=== PATIENT | female | born 1975 | race Caucasian/White ===

== ENCOUNTER 2025-07-21 11:34 | Inpatient (IN) | payer MEDICAID, OTHER ==
[~2025-07-21] VITALS: Ht 152.4 cm; Wt 41.6 kg
[2025-07-21 11:55] VITALS: PULSE 65; RESP 12; O2SAT 100
--- NOTE | 2025-07-21 11:55 | ECG ---
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
--- NOTE | 2025-07-21 12:02 | ED.PDOC ---
HPI Comments 50 year old female with PMHx bed bound and nonverbal secondary to cerebral palsy, intellectual disability, epilepsy presents to the ED via EMS with a chief complaint of hypotension onset today. Per EMS, patient is from [facility], 911 was called due to patient being hypotensive. Upon EMS arrival, BP was 70s systolic, was given about 150 mL IVF in route to ED. Upon ED arrival, BP was 79/46. No other symptoms or modifying factors present at this time. 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 Was a procedure done?: No X-Ray, Labs, Meds, VS Vital Signs Date Time Temp Pulse Resp B/P (MAP) Pulse Ox O2 Delivery O2 Flow Rate FiO2 07/21/25 12:39 66 07/21/25 11:55 98.8 65 12 79/46 (57) 98 98.8 07/21/25 11:55 65 12 100 Room Air* 0 21 07/21/25 11:49 65 07/21/25 11:34 97.8 79 14 79/46 99 97.8 Lab Test 07/21/25 12:03 Range/Units White Blood Count 8.0 4.4-10.8 10^3/uL Red Blood Count 3.14 L 4.0-5.20 10^6/uL Hemoglobin 9.5 L 12.2-16.2 g/dL Hematocrit 29.2 L 36.0-46.0 % Mean Corpuscular Volume 93.0 80.0-100.0 fL Mean Corpuscular Hemoglobin 30.3 28.0-32.0 pg Mean Corpuscular Hemoglobin Concent 32.6 32.0-36.0 g/dL Red Cell Distribution Width 15.3 H 11.8-14.3 % Platelet Count 246 140-450 10^3/uL Mean Platelet Volume 8.7 6.9-10.8 fL Neutrophils (%) (Auto) 61.9 37.0-80.0 % Lymphocytes (%) (Auto) 25.8 10.0-50.0 % Monocytes (%) (Auto) 11.1 0.0-12.0 % Eosinophils (%) (Auto) 1.0 0.0-7.0 % Basophils (%) (Auto) 0.2 0.0-2.0 % Neutrophils # (Auto) 4.9 1.6-8.6 10 ^3/uL Lymphocytes # (Auto) 2.1 0.4-5.4 10 ^3/uL Monocytes # (Auto) 0.9 0-1.3 10 ^3/uL Eosinophils # (Auto) 0.1 0-0.8 10 ^3/uL Basophils # (Auto) 0 0-0.2 10 ^3/uL Nucleated Red Blood Cells 0.1 % Prothrombin Time Pending Prothrombin Time INR Pending Activated Partial Thromboplast Time Pending Sodium Level Pending Potassium Level Pending Chloride Level Pending Carbon Dioxide Level Pending Anion Gap Pending Blood Urea Nitrogen Pending Creatinine Pending Glomerular Filtration Rate Calc Pending BUN/Creatinine Ratio Pending Serum Glucose Pending Lactic Acid Level Pending Calcium Level Pending Total Bilirubin Pending Aspartate Amino Transferase (AST) Pending Alanine Aminotransferase (ALT) Pending Alkaline Phosphatase Pending Total Protein Pending Albumin Pending Current Medications Medications (Trade) Dose Ordered Sig/Gretchen Route Start Time Stop Time Status Last Admin Lactated Ringer's 1,700 ml @ 1,700 mls/hr ONCE ONCE IV 07/21/25 12:00 07/21/25 12:59 07/21/25 12:[address] [address] Ph: [phone] DIAGNOSTIC IMAGING Diagnostic Imaging Report : [id number] Signed PATIENT: KAYLEE PETE ACCT: [id number] UNIT: [id number] : 1975 LOC: ER ROOM / BED: / AGE / SEX: 50 / F ADM STATUS: REG ER SERVICE 1148 ORDERING PHYSICIAN: WOO REYNAGA MD PROCEDURE(s): CXRP - CHEST PORTABLE REASON: hypotension ORDER NUMBER(s): [id number], ACCESSION NUMBER(s): [id number] INDICATION: hypotension TECHNIQUE: Frontal view of the chest. COMPARISON: XR CHEST 1 VIEW on DOS: 07/10/25, XR CHEST 1 VIEW on DOS: 04/04/25, XR CHEST 1 VIEW on DOS: 04/03/25, XR CHEST 1 VIEW on DOS: 03/15/25, XR CHEST 1 VIEW on DOS: 03/07/25 FINDINGS: Mild increased interstitial markings are seen involving the right lung. In there is no definite evidence of an infiltrate. Heart size normal. No effusions present. IMPRESSION: 1. Mild increased interstitial markings involving the right lung. ATED BY: LOUISE MUNIZ MD DICTATED DATE/TIME: 07/21/25 1231 SIGNED BY: LOUISE MUNIZ MD SIGNED DATE/TIME: 07/21/25 1231 CC: Time of 1ST Reevaluation: 12:20 Reevaluation 1ST: Unchanged Patient Education/Counseling: Other Family Education/Counseling: No Family Present SEPSIS Sepsis Screen Date sepsis recognized/suspect: Jul 21, 2025 Time Sepsis recognized/suspect: 1134 Recent Procedure: No On Antibiotic Therapy: No Respiratory Rate >20: No Heart Rate >90: No Temp<36 C (96.8 F) or >38.3 C: No SBP <90 or MAP <65 mmHG: Yes New Acute Mental Status Change: No Is the patient on CPAP, BIPAP,: No Physician Orders Comprehensive Metabolic Panel (07/21/25 11:48) PTPTT (07/21/25 11:48) Urinalysis (07/21/25 11:48) Chest Portable (07/21/25 11:48) Accucheck (07/21/25 11:48) Lactated Ringer's (07/21/25 12:00) Blood Culture (07/21/25 11:48) Vancomycin 1gm/250ml Kit (07/21/25 12:00) Lactic Acid W/ Reflex Order (07/21/25 12:00) Cefepime 1gm/50ml (Maxipime 1gm/50ml) (07/21/25 12:00) Notify Md If Map <65 Or Bp<90 (07/21/25 11:48) If Map<65 Start Vasopressor (07/21/25 11:48) Sepsis Reassesment After Fluid (07/21/25 12:48) Pelvis Ap (07/21/25 11:48) Paint Roller Assembler (07/21/25 ) * Picc Line Consult (07/21/25 12:40) Vital Signs Date Time Temp Pulse Resp B/P (MAP) Pulse Ox O2 Delivery O2 Flow Rate FiO2 07/21/25 12:39 66 07/21/25 11:55 98.8 65 12 79/46 (57) 98 98.8 07/21/25 11:55 65 12 100 Room Air* 0 21 07/21/25 11:49 65 07/21/25 11:34 97.8 79 14 79/46 99 97.8 Laboratory Tests Test 07/21/25 12:03 Lactic Acid Level Pending White Blood Count 8.0 10^3/uL (4.4-10.8) Medications Medications Dose Ordered Sig/Gretchen Route Start Time Stop Time Status Last Admin Dose Admin Lactated Ringer's 1,700 ml @ 1,700 mls/hr ONCE ONCE IV 07/21/25 12:00 07/21/25 12:59 07/21/25 12:06 Critical Care Note Critical Care Time?: No Stability Stability form required: No Heart Score Heart Score: Heart Score Response (Comments) Value History N/A 0 EKG N/A 0 Age N/A 0 Risk Factors N/A 0 Troponin N/A 0 Total 0 I personally scribed for WOO REYNAGA MD ([email or web address]) on 07/21/25 at 12:02. Electronically submitted by Madiha Block ([email or web address]). I personally scribed for WOO REYNAGA MD ([email or web address]) on 07/21/25 at 12:46. Electronically submitted by Madiha Block ([email or web address]). WOO REYNAGA MD Jul 21, 2025 12:02
[2025-07-21] MEDS: LACTATED RINGER'S 1,700 ML IV ONE (12:06)
--- NOTE | 2025-07-21 12:33 | DVH ---
INDICATION: hypotension TECHNIQUE: Frontal view of the chest. COMPARISON: XR CHEST 1 VIEW on DOS: 07/10/25, XR CHEST 1 VIEW on DOS: 04/04/25, XR CHEST 1 VIEW on DOS: 04/03/25, XR CHEST 1 VIEW on DOS: 03/15/25, XR CHEST 1 VIEW on DOS: 03/07/25 FINDINGS: Mild increased interstitial markings are seen involving the right lung. In there is no definite evidence of an infiltrate. Heart size normal. No effusions present. IMPRESSION: 1. Mild increased interstitial markings involving the right lung.
--- NOTE | 2025-07-21 12:34 | DVH ---
EXAM: XY PELVIS AP CLINICAL INDICATION: pain TECHNIQUE: XY PELVIS AP COMPARISON: None FINDINGS/IMPRESSION: There is no evidence of acute fracture or dislocation. The visualized joint space is well maintained. The alignment is anatomical. There is no radiopaque foreign body.
[2025-07-21 12:37] LABS: Hematocrit 29.2 % (36.0-46.0); Hemoglobin 9.5 g/dL (12.2-16.2); Mean Corpuscular Hemoglobin 30.3 pg (28.0-32.0); Mean Corpuscular Volume 93.0 fL (80.0-100.0); Nucleated Red Blood Cells % 0.1 %
[2025-07-21] MEDS: CEFEPIME 1GM/50ML 50 ML IV ONE (12:50)
[2025-07-21 12:53] LABS: INR 1.09 (0.9-1.15); Partial Thromboplastin Time 33.5 SEC (24.5-34.5); Prothrombin Time 11.5 sec (9.3-11.8)
[2025-07-21 12:57] LABS: Alanine Aminotransferase 14 U/L (7-40); Anion Gap 8 (5-15); BUN/Creatinine Ratio 26.1 (10.0-20.0); Carbon Dioxide 25 mmol/L (20-31); Potassium 4.1 mmol/L (3.5-5.1); Sodium 142 mmol/L (136-145)
[2025-07-21 13:13] LABS: Albumin 2.6 g/dL (3.2-4.8); Alkaline Phosphatase 128 U/L (46-116); Bilirubin, Total 0.2 mg/dL (0.2-1.0); Blood Urea Nitrogen 6 mg/dL (9-23); Calcium 8.2 mg/dL (8.7-10.4); Chloride 109 mmol/L (98-107); Glucose 148 mg/dL (74-106); Total Protein 4.7 g/dL (5.7-8.2)
[2025-07-21] MEDS: VANCOMYCIN 1GM/250ML KIT 250 ML IV ONE (13:32)
[2025-07-21] MEDS: SODIUM CHLORIDE 0.9% 1,000 ML IV ONE (14:20)
[2025-07-21] MEDS ORDERED: NITROGLYCERIN 0.4 MG SL TAB SL PRN (16:15)
[2025-07-21] MEDS ORDERED: ONDANSETRON HCL 4 MG/2 ML VIAL IV PRN (16:15)
--- NOTE | 2025-07-21 16:23 | DVHHP2 ---
History of Present Illness Reason for Visit: Hypotension History of Present Illness Krystina Mcguire is a 50-year-old female with past medical history of bed bound and nonverbal secondary to cerebral palsy, intellectual disability, and epilepsy who was brought to the hospital by EMS for hypotension. Per EMS, patient is from [facility]. They called EMS due to patient being hypotensive. Upon EMS arrival, BP was 70s systolic, was given about 150 mL IVF in route to ED. Upon ED arrival, BP was 79/46. No other symptoms or modifying factors present at this time. TUBE DRAW HELPER: Other (Cerebral palsy, seizure, intellectual disabiltiy, non-verbal, bed bound, contracted) Past Surgical History: Other (Peg tube) Smoke: No ALCOHOL: none Drugs: None Lives: [facility] Domestic Violence: Neg Review of Systems Review of Systems Unable to obtain ENT: No: Ear pain, Ear discharge, Nose pain, Nose discharge, Nose congestion, Mouth pain, Mouth swelling, Throat pain, Throat swelling, Other Allergies: Coded Allergies: NO KNOWN ALLERGIES (Unverified , 07/21/25) Exam Vital Signs Vital Signs Date Time Temp Pulse Resp B/P (MAP) Pulse Ox O2 Delivery O2 Flow Rate FiO2 07/21/25 16:00 65 07/21/25 15:00 98.6 10 85/56 (66) 92 98.6 07/21/25 11:55 Room Air* 0 21 HEENT: Atraumatic, PERRLA, Other (Mucous membr dry) Respiratory: Clear to auscultation, Normal air movement Cardiovascular: Regular rate, Normal S1, Normal S2, Other (Hypotensive) Abdominal: Normal bowel sounds, Soft, Other (Peg tube) Extremities: Other (contracted, possible humerus fracture) Skin: No rashes, No breakdown, No significant lesion Neuro: Other (Cerebral palsy, seizure, intellectual disabiltiy, non-verbal, bed bound, contracted) Psych/Mental Status: Other Labs/Xrays Labs Test 07/21/25 12:03 Range/Units White Blood Count 8.0 4.4-10.8 10^3/uL Red Blood Count 3.14 L 4.0-5.20 10^6/uL Hemoglobin 9.5 L 12.2-16.2 g/dL Hematocrit 29.2 L 36.0-46.0 % Mean Corpuscular Volume 93.0 80.0-100.0 fL Mean Corpuscular Hemoglobin 30.3 28.0-32.0 pg Mean Corpuscular Hemoglobin Concent 32.6 32.0-36.0 g/dL Red Cell Distribution Width 15.3 H 11.8-14.3 % Platelet Count 246 140-450 10^3/uL Mean Platelet Volume 8.7 6.9-10.8 fL Neutrophils (%) (Auto) 61.9 37.0-80.0 % Lymphocytes (%) (Auto) 25.8 10.0-50.0 % Monocytes (%) (Auto) 11.1 0.0-12.0 % Eosinophils (%) (Auto) 1.0 0.0-7.0 % Basophils (%) (Auto) 0.2 0.0-2.0 % Neutrophils # (Auto) 4.9 1.6-8.6 10 ^3/uL Lymphocytes # (Auto) 2.1 0.4-5.4 10 ^3/uL Monocytes # (Auto) 0.9 0-1.3 10 ^3/uL Eosinophils # (Auto) 0.1 0-0.8 10 ^3/uL Basophils # (Auto) 0 0-0.2 10 ^3/uL Nucleated Red Blood Cells 0.1 % Prothrombin Time 11.5 9.3-11.8 sec Prothrombin Time INR 1.09 0.9-1.15 Activated Partial Thromboplast Time 33.5 24.5-34.5 SEC Sodium Level 142 136-145 mmol/L Potassium Level 4.1 3.5-5.1 mmol/L Chloride Level 109 H 98-107 mmol/L Carbon Dioxide Level 25 20-31 mmol/L Anion Gap 8 5-15 Blood Urea Nitrogen 6 L 9-23 mg/dL Creatinine 0.23 L 0.550-1.02 mg/dL Glomerular Filtration Rate Calc 138 >90 mL/min BUN/Creatinine Ratio 26.1 H 10.0-20.0 Serum Glucose 148 H 74-106 mg/dL Lactic Acid Level 1.7 0.4-2.0 mmol/L Calcium Level 8.2 L 8.7-10.4 mg/dL Total Bilirubin 0.2 0.2-1.0 mg/dL Aspartate Amino Transferase (AST) 16 13-40 U/L Alanine Aminotransferase (ALT) 14 7-40 U/L Alkaline Phosphatase 128 H 46-116 U/L Total Protein 4.7 L 5.7-8.2 g/dL Albumin 2.6 L 3.2-4.8 g/dL TECHNIQUE: Frontal view of the chest. FINDINGS: Mild increased interstitial markings are seen involving the right lung. In there is no definite evidence of an infiltrate. Heart size normal. No effusions present. IMPRESSION: 1. Mild increased interstitial markings involving the right lung. EXAM: XY PELVIS AP FINDINGS/IMPRESSION: There is no evidence of acute fracture or dislocation. The visualized joint space is well maintained. The alignment is anatomical. There is no radiopaque foreign body. SEPSIS Sepsis Screen Date sepsis recognized/suspect: Jul 21, 2025 Time Sepsis recognized/suspect: 115 Recent Procedure: No On Antibiotic Therapy: No Respiratory Rate >20: No Heart Rate >90: No Temp<36 C (96.8 F) or >38.3 C: No SBP <90 or MAP <65 mmHG: Yes New Acute Mental Status Change: No Is the patient on CPAP, BIPAP,: No Physician Orders Urinalysis (07/21/25 11:48) Chest Portable (07/21/25 11:48) Accucheck (07/21/25 11:48) Blood Culture (07/21/25 11:48) Notify Md If Map <65 Or Bp<90 (07/21/25 11:48) If Map<65 Start Vasopressor (07/21/25 11:48) Sepsis Reassesment After Fluid (07/21/25 12:48) Pelvis Ap (07/21/25 11:48) Core Finisher (07/21/25 ) Admit (07/21/25 16:07) Code Status (07/21/25 16:07) 0.9% Ns 1000 Ml (07/21/25 16:15) Hydrocodone-Acet 5/325mg Tab ([place] 5/32 (07/21/25 16:15) Ondansetron Hcl (Zofran) (07/21/25 16:15) Complete Blood Count (07/22/25 04:00) Comprehensive Metabolic Panel (07/22/25 04:00) Npo (Nothing By Mouth) Diet (07/21/25 Dinner) Condition: Serious (07/21/25 16:07) Acetaminophen Tablet (Tylenol Tablet) (07/21/25 16:15) Nitroglycerin Sublingual (Ntrostat Subli (07/21/25 16:15) Morphine Sulfate Injection (07/21/25 16:15) Stat Ekg For Chest Pain (07/21/25 16:07) Notify Of Changes From Base (07/21/25 16:07) Gravel Wheeler For 24 Hours (07/21/25 16:07) Emergency Dysrhythmia Protocol (07/21/25 16:07) Rhythm Strips Once Every Shift (07/21/25 16:07) Oxygen By Nasal Cannula (07/21/25 16:07) Docusate Sodium Liquid (Colace Liquid) (07/21/25 16:15) Vital Signs Date Time Temp Pulse Resp B/P (MAP) Pulse Ox O2 Delivery O2 Flow Rate FiO2 07/21/25 16:00 65 07/21/25 15:00 98.6 59 10 85/56 (66) 92 98.6 07/21/25 14:00 83 10 90/56 (67) 97 07/21/25 13:55 65 10 90/56 (67) 95 07/21/25 12:39 66 07/21/25 11:55 98.8 65 12 79/46 (57) 98 98.8 07/21/25 11:55 65 12 100 Room Air* 0 21 07/21/25 11:49 65 07/21/25 11:34 97.8 79 14 79/46 99 97.8 Laboratory Tests Test 07/21/25 12:03 Lactic Acid Level 1.7 mmol/L (0.4-2.0) White Blood Count 8.0 10^3/uL (4.4-10.8) Medications Medications Dose Ordered Sig/Gretchen Route Start Time Stop Time Status Last Admin Dose Admin Cefepime HCl 50 ml @ 12.5 mls/hr ONCE ONCE IV 07/21/25 12:00 07/21/25 15:59 DC 07/21/25 12:50 12.5 MLS/HR Lactated Ringer's 1,700 ml @ 1,700 mls/hr ONCE ONCE IV 07/21/25 12:00 07/21/25 12:59 DC 07/21/25 12:06 1,700 MLS/HR Sodium Chloride 1,000 ml @ 1,000 mls/hr Q1H ONCE IV 07/21/25 14:15 07/21/25 15:14 DC 07/21/25 14:20 1,000 MLS/HR Vancomycin HCl 250 ml @ 250 mls/hr ONCE ONCE IV 07/21/25 12:00 07/21/25 12:59 DC 07/21/25 13:32 250 MLS/HR Assessment/Plan Assessment/Plan Assessment: Hypotension, Possible sepsis, Possible UTI, Seizures, Plan: Admit to [facility], IV hydration, IV antibiotics, Straight cath for UA, Wound care consult, Seizure precautions, Home medications reconciled, Plan discussed with: Patient My Orders Orders - AZUL HDZ Procedure Category Date Status Time Admit ADMIT 07/21/25 Transmitted 16:07 Code Status CODE 07/21/25 Transmitted 16:07 0.9% Ns 1000 Ml PHA 07/21/25 Transmitted 16:15 Hydrocodone-Acet PHA 07/21/25 Transmitted 5/325mg Tab ([place] 16:15 Ondansetron Hcl [facility] 07/21/25 Transmitted (Zofran) 16:15 Complete Blood Count LAB 07/22/25 Verified 04:00 Comprehensive LAB 07/22/25 Verified Metabolic Panel 04:00 Npo (Nothing By DIET 07/21/25 Transmitted Mouth) Diet Dinner Condition: Serious [facility] 07/21/25 Transmitted 16:07 Acetaminophen Tablet [facility] 07/21/25 Transmitted (Tylenol Tablet) 16:15 Nitroglycerin [facility] 07/21/25 Transmitted Sublingual (Ntrostat 16:15 Morphine Sulfate PHA 07/21/25 Transmitted Injection 16:15 Stat Ekg For Chest [facility] 07/21/25 Transmitted Pain 16:07 Notify Md Of Changes [facility] 07/21/25 Transmitted From Base 16:07 Gravel Wheeler For [facility] 07/21/25 Transmitted 24 Hours 16:07 Emergency Dysrhythmia [facility] 07/21/25 Transmitted Protocol 16:07 Rhythm Strips Once [facility] 07/21/25 Transmitted Every Shift 16:07 Oxygen By Nasal RT 07/21/25 Transmitted Cannula 16:07 Docusate Sodium PHA 07/21/25 Transmitted Liquid (Colace Liquid) 16:15 Date of Service: Jul 21, 2025 Billing Provider: AZUL HDZ Common Visit Codes: [id number] INP/OBS CARE (MOD) AZUL HDZ Jul 21, 2025 16:23
[2025-07-21] MEDS: SODIUM CHLORIDE 0.9% 1,000 ML IV SCH (16:28)
[2025-07-21] MEDS ORDERED: MORPHINE SULFATE 4 MG/ML SYR/VIAL IV PRN (16:30)
[2025-07-21 16:46] LABS: Urine Protein, UAD TRACE (Negative); Urine WBC Clumps PRESENT /hpf (None Seen)
[2025-07-21 17:40] VITALS: BP 97/67; PULSE 77; RESP 16; TEMP 97.4; O2SAT 94
[2025-07-21 19:18] VITALS: PULSE 77; RESP 16; O2SAT 94
[2025-07-21] MEDS ORDERED: HYDR-4798 PO (19:56)
[2025-07-21] MEDS ORDERED: [UNRECOGNIZED DRUG - CODE] IV (19:56)
[2025-07-21] MEDS ORDERED: [UNRECOGNIZED DRUG - CODE] IM (19:56)
[2025-07-21] MEDS ORDERED: PHEN50CH OR (19:56)
[2025-07-21] MEDS ORDERED: LACO10SO3 PO (19:56)
[2025-07-21] MEDS ORDERED: VALP250S19 PO (19:56)
[2025-07-21] MEDS ORDERED: LEVE5SOL GT (19:56)
[2025-07-21] MEDS ORDERED: FAMO-161 PO (19:56)
[2025-07-21 20:00] VITALS: PULSE 50; PULSE 77
[2025-07-21 21:00] VITALS: BP 99/70; PULSE 73; RESP 18; TEMP 96.5; O2SAT 96
[2025-07-22] VITALS (8 sets, daily range): BP systolic 97–117; BP diastolic 59–77; PULSE 54–80; RESP 16–19; TEMP 96.6–98; O2SAT 94–99
[2025-07-22 06:48] LABS: Hematocrit 34.6 % (36.0-46.0); Hemoglobin 11.4 g/dL (12.2-16.2); Mean Corpuscular Hemoglobin 30.6 pg (28.0-32.0); Mean Corpuscular Volume 93.3 fL (80.0-100.0); Nucleated Red Blood Cells % 0.1 %
[2025-07-22 07:19] LABS: Alanine Aminotransferase 15 U/L (7-40); Anion Gap 9 (5-15); Calcium 8.8 mg/dL (8.7-10.4); Carbon Dioxide 26 mmol/L (20-31); Potassium 4.4 mmol/L (3.5-5.1); Sodium 142 mmol/L (136-145)
[2025-07-22 07:20] LABS: Bilirubin, Total 0.4 mg/dL (0.2-1.0)
[2025-07-22 07:30] LABS: Albumin 2.8 g/dL (3.2-4.8); Alkaline Phosphatase 145 U/L (46-116); BUN/Creatinine Ratio 23.8 (10.0-20.0); Blood Urea Nitrogen < 5 mg/dL (9-23); Chloride 107 mmol/L (98-107); Glucose 72 mg/dL (74-106); Total Protein 4.9 g/dL (5.7-8.2)
[2025-07-22] MEDS: VALPROIC ACID 250 MG/5 ML ORAL SOLN PEG SCH (09:36)
[2025-07-22 14:03] LABS: Barbiturate Scree,Urine Neg (NEGATIVE); Opiate Scree,Urine Neg (NEGATIVE)
[2025-07-22 14:06] LABS: Amphetamine Screen, Urine Neg (NEGATIVE); Benzodiazephine Screen, Urine Neg (NEGATIVE); Cannabinoid Screen, Urine Neg (NEGATIVE); Cocaine Screen, Urine Neg (NEGATIVE); Phencyclidine Screen, Urine Neg (NEGATIVE)
--- NOTE | 2025-07-22 19:00 | DVHPNRES ---
Progress Note Date Seen: Jul 22, 2025 Resident Creating Document: REYMUNOD HOPKINS RESIDENT Medical Necessity Reason Pt with a Central, PICC or Fol: No Subjective Review of Systems 50-year-old female with a past medical history of cerebral palsy, right shoulder dislocation, epilepsy, G-tube, nonverbal, nonambulatory,with ntellectual disability was brought to the hospital by EMS for hypotension. [facility] As well as ER notes. EMS informed that the patient was brought to the ER as the nursing facility noted that the patient's blood pressure was low. On arrival blood pressure was 79/46 mmHg. No other symptoms or modifying factors present at this time. Past Surgical History: Other (Peg tube) Smoke: No ALCOHOL: none Drugs: None Lives: Longterm Domestic Violence: Neg ROS 07/22/2025: Patient was seen and examined by me at the bedside today. Labs and charts reviewed. Patient is nonverbal and nonambulatory. Peg tube is in place. We are giving the patient ceftriaxone for her UTI. For hypotension fluids are ongoing. Objective vital signs Vital Sign Date Time Temp Pulse Resp B/P (MAP) Pulse Ox O2 Delivery O2 Flow Rate FiO2 07/22/25 16:42 97.0 58 17 106/72 (83) 99 97.0 07/22/25 08:00 Room Air* 0 21 Total Intake and Output 07/21/25 07/21/25 07/22/25 15:00 23:00 07:00 Intake Total 1750 ml 1060 ml 0 ml Balance 1750 ml 1060 ml 0 ml medications Current Medications Medications Dose Ordered Sig/Gretchen Route Start Time Stop Time Status Last Admin Dose Admin Sodium Chloride 1,000 ml @ 60 mls/hr [id number] IV 07/21/25 16:15 07/22/25 08:55 60 MLS/HR Acetaminophen/ Hydrocodone Bitart 1 tab Q4HP PRN PO 07/21/25 16:15 Ondansetron HCl 4 mg Q4HP PRN IV 07/21/25 16:15 Acetaminophen 650 mg Q6HP PRN PO 07/21/25 16:15 Nitroglycerin 0.4 mg Q5MINP PRN SL 07/21/25 16:15 Morphine Sulfate 2 mg Q30M PRN IV 07/21/25 16:30 Docusate Sodium 100 mg BIDP PRN GT 07/21/25 16:15 Ceftriaxone Sodium 50 ml @ 100 mls/hr DAILY@09 IV 07/22/25 09:00 07/22/25 09:35 100 MLS/HR Levetiracetam 100 mg BID GT 07/22/25 10:00 07/22/25 09:36 100 MG Valproate Sodium 500 mg DAILY PEG 07/22/25 10:00 07/22/25 09:36 500 MG Examination Pt is lying on bed General Appearance: Patient does not appear in acute distress HEENT: Atraumatic, Mucous membranes moist/pink Respiratory: Clear to auscultation, Normal air movement, No added sounds Cardiovascular: Regular rate, Normal S1, Normal S2, No murmurs Abdominal: Active bowel sounds, Soft, no distention, presence of PEG tube in the epigastric region Extremities: No edema, Normal pulses, No tenderness/swelling Skin: No Significant rash, except past surgical scars Neuro: Patient unable to move as she has cerebral palsy laboratory and microbiology Laboratory Tests 07/22/25 06:03 Test 07/22/25 06:03 Range/Units Serum Glucose 72 L 74-106 mg/dL Microbiology Date/Time Source Procedure Growth Status 07/21/25 12:05 Blood Blood Culture - Preliminary Resulted Labs and/or images reviewed: Labs reviewed by me, Image(s) reviewed by me Problem List/Assessment/Plan Problem List/Assessment/Plan # Acute complicated UTI - ceftriaxone 1 g IV daily - Zofran 4 mg q.4 PRN IV for nausea and vomiting - urine culture, pending - 1.7 # hypotension - 1 L during a lactate and 2 L NS given - if MAP is less than 65, pressors indicated # History of epilepsy # History of cerebral palsy - continue valproate sodium 500 mg daily through PEG tube - continue Keppra 100 mg b.i.d. through PEG tube - [place] 5/325 mg p.o. q.4 PRN - acetaminophen 650 mg q.6 PRN p.o. - morphine 2 mg Q 30 minute PRN IV - Colace liquid 100 mg b.i.d. for constipation PRN # Severe protein calorie malnutrition -Jevity 1.230 mL/hour through PEG tube as suggested by electrical systems drafter DVT prophylaxis: Lovenox 30 mg subcutaneously daily Goals of care discussed with the patient for more than 27 minutes: Full code status Case discussed with , patient and nurse. Plan discussed with: Patient, Other (rn) My Orders My Orders Orders - REYMUNDO HOPKINS RESIDENT Procedure Category Date Status Time Covid19 Antigen Francy LAB 07/22/25 Logged Rapid Influenza A&B LAB 07/22/25 Logged 07:12 Urine Bacterial MENDEZ 07/22/25 Uncollected Culture 10:20 Communication Order ORDERS 07/22/25 Transmitted 18:46 Enoxaparin Sodium PHA 07/23/25 Logged (Lovenox) 10:00 Dietary Evaluation Review Comments: Tube Feeding: Jevity 1.2 @30ml/hr To avoid refeeding syndrome, Initiate infusion @10ml/hr, increase [id number] unitl meeting the goalt rate of 30ml/hr Provide Reyes BID for promoting wound healing (via TF, or PO if medically feasible and passing MONUMENT SETTER HELPER eval. Expected Outcomes/Goals: Improved nutrition status, prevent catabolism Visit Coding STANDARD RES Billing Provider: JAYDEN DONIS MD Date of Service if different f: Jul 22, 2025 Common Visit Codes: [id number] INP/OBS CARE(HIGH) REYMUNDO HOPKINS RESIDENT Jul 22, 2025 19:00 JAYDEN DONIS MD Jul 23, 2025 19:52
[2025-07-22 21:19] LABS: Urine Protein, UAD Negative (Negative)
[2025-07-23] VITALS (8 sets, daily range): BP systolic 98–124; BP diastolic 65–81; PULSE 51–78; RESP 16–20; TEMP 96.9–98.2; O2SAT 92–97
[2025-07-23 08:31] LABS: Hematocrit 33.7 % (36.0-46.0); Hemoglobin 11.2 g/dL (12.2-16.2); Mean Corpuscular Hemoglobin 30.3 pg (28.0-32.0); Mean Corpuscular Volume 91.1 fL (80.0-100.0); Nucleated Red Blood Cells % 0.1 %
[2025-07-23 08:36] LABS: Anion Gap 10 (5-15); Carbon Dioxide 25 mmol/L (20-31); Chloride 105 mmol/L (98-107); Potassium 3.9 mmol/L (3.5-5.1); Sodium 140 mmol/L (136-145)
[2025-07-23 08:37] LABS: Calcium 9.1 mg/dL (8.7-10.4)
[2025-07-23 08:42] LABS: Glucose 75 mg/dL (74-106)
[2025-07-23 08:44] LABS: BUN/Creatinine Ratio 20.8 (10.0-20.0); Blood Urea Nitrogen < 5 mg/dL (9-23)
[2025-07-23] MEDS: ENOXAPARIN SOD 30 MG/0.3 ML SYRINGE SC SCH (10:47)
--- NOTE | 2025-07-23 17:19 | DVHPNRES ---
Progress Note Date Seen: Jul 23, 2025 Resident Creating Document: REYMUNDO HOPKINS RESIDENT Medical Necessity Reason Pt with a Central, PICC or Fol: No Subjective Review of Systems 50-year-old female with a past medical history of cerebral palsy, right shoulder dislocation, epilepsy, G-tube, nonverbal, nonambulatory,with ntellectual disability was brought to the hospital by EMS for hypotension. History was noted from [facility] paperwork As well as ER notes. EMS informed that the patient was brought to the ER as the nursing facility noted that the patient's blood pressure was low. On arrival blood pressure was 79/46 mmHg. No other symptoms or modifying factors present at this time. Past Surgical History: Other (Peg tube) Smoke: No ALCOHOL: none Drugs: None Lives: Alf Domestic Violence: Neg ROS 07/22/2025: Patient was seen and examined by me at the bedside today. Labs and charts reviewed. Patient is nonverbal and nonambulatory. Peg tube is in place. We are giving the patient ceftriaxone for her UTI. For hypotension fluids are ongoing. 07/23/2025: Patient was seen and examined by me at the bedside today. Labs and charts were reviewed. Patient seems less dehydrated and fluids are ongoing. Blood pressure is stable at 98/71 mmHg this morning, which then increased to 116/74 mmHg in the evening. We tried to straight cath the patient for urine culture sample, but the nurse were unable to do it due to patient's anatomy. We will speak to Urology tomorrow for urinary culture sample. Objective vital signs Vital Sign Date Time Temp Pulse Resp B/P (MAP) Pulse Ox O2 Delivery O2 Flow Rate FiO2 07/23/25 16:51 97.8 78 16 116/74 (88) 94 97.8 07/23/25 08:00 Room Air* 0 21 Total Intake and Output 07/22/25 07/22/25 07/23/25 15:00 23:00 07:00 Intake Total 50 ml 0 ml 1000 ml Balance 50 ml 0 ml 1000 ml medications Current Medications Medications Dose Ordered Sig/Gretchen Route Start Time Stop Time Status Last Admin Dose Admin Sodium Chloride 1,000 ml @ 60 mls/hr [id number] IV 07/21/25 16:15 07/23/25 01:35 60 MLS/HR Acetaminophen/ Hydrocodone Bitart 1 tab Q4HP PRN PO 07/21/25 16:15 Ondansetron HCl 4 mg Q4HP PRN IV 07/21/25 16:15 Acetaminophen 650 mg Q6HP PRN PO 07/21/25 16:15 Nitroglycerin 0.4 mg Q5MINP PRN SL 07/21/25 16:15 Morphine Sulfate 2 mg Q30M PRN IV 07/21/25 16:30 Docusate Sodium 100 mg BIDP PRN GT 07/21/25 16:15 Ceftriaxone Sodium 50 ml @ 100 mls/hr DAILY@09 IV 07/22/25 09:00 07/23/25 09:09 100 MLS/HR Levetiracetam 100 mg BID GT 07/22/25 10:00 07/23/25 10:46 100 MG Valproate Sodium 500 mg DAILY PEG 07/22/25 10:00 07/23/25 10:46 500 MG Enoxaparin Sodium 30 mg DAILY SC 07/23/25 10:00 07/23/25 10:47 30 MG Enteral Nutritional Formula 1,000 ml 30ML/HR GT 07/22/25 19:00 laboratory and microbiology Laboratory Tests 07/23/25 07:58 Test 07/23/25 07:58 Range/Units Serum Glucose 75 74-106 mg/dL Microbiology Date/Time Source Procedure Growth Status 07/21/25 12:05 Blood Blood Culture - Preliminary Resulted Labs and/or images reviewed: Labs reviewed by me, Image(s) reviewed by me Problem List/Assessment/Plan Problem List/Assessment/Plan # Sepsis due to Acute complicated UTI # Volume depletion, hypotension - ceftriaxone 1 g IV daily - Zofran 4 mg q.4 PRN IV for nausea and vomiting - urine culture - 1 L during a lactate and 2 L NS given - if MAP is less than 65, pressors indicated # History of epilepsy # History of cerebral palsy - continue valproate sodium 500 mg daily through PEG tube - continue Keppra 100 mg b.i.d. through PEG tube - [place] 5/325 mg p.o. q.4 PRN - acetaminophen 650 mg q.6 PRN p.o. - morphine 2 mg Q 30 minute PRN IV - Colace liquid 100 mg b.i.d. for constipation PRN # Severe protein calorie malnutrition -Jevity 1.230 mL/hour through PEG tube as suggested by charge entry clerk DVT prophylaxis: Lovenox 30 mg subcutaneously daily Goals of care discussed with the patient for more than 27 minutes: Full code status Case discussed with , patient and nurse. Plan discussed with: Patient, Other (rn) My Orders My Orders Orders - REYMUNDO HOPKINS Procedure Category Date Status Time Communication Order ORDERS 07/22/25 Transmitted 18:46 Enoxaparin Sodium PHA 07/23/25 In Process (Lovenox) 10:00 Nutritional PHA 07/22/25 In Process Supplements (Jevity 19:00 Dietary Evaluation Review Comments: Tube Feeding: Jevity 1.2 @30ml/hr To avoid refeeding syndrome, Initiate infusion @10ml/hr, increase [id number] unitl meeting the goalt rate of 30ml/hr Provide Reyes BID for promoting wound healing (via TF, or PO if medically feasible and passing GAUGE CONTROLLER eval. Expected Outcomes/Goals: Improved nutrition status, prevent catabolism Visit Coding STANDARD RES Billing Provider: JAYDEN DONIS MD Date of Service if different f: Jul 23, 2025 Common Visit Codes: [id number] INP/OBS CARE(HIGH) REYMUNDO HOPKINS Jul 23, 2025 17:19 JAYDEN DONIS MD Jul 23, 2025 19:35
[2025-07-23] MEDS: Jevity 1.2 Cal/Fiber 1 Liter GT SCH (21:22)
[2025-07-23 23:11] LABS: COVID19 ANTIGEN SOFIA FIA NEGATIVE (NEGATIVE)
[2025-07-24] VITALS (8 sets, daily range): BP systolic 92–125; BP diastolic 56–75; PULSE 78–111; RESP 17–20; TEMP 97.2–98; O2SAT 90–98
[2025-07-24 05:52] LABS: Urine Protein, UAD Negative (Negative)
[2025-07-24 07:15] LABS: Hematocrit 35.3 % (36.0-46.0); Hemoglobin 11.7 g/dL (12.2-16.2); Mean Corpuscular Hemoglobin 30.3 pg (28.0-32.0); Mean Corpuscular Volume 91.0 fL (80.0-100.0); Nucleated Red Blood Cells % 0.0 %
[2025-07-24 07:18] LABS: Anion Gap 13 (5-15); Carbon Dioxide 24 mmol/L (20-31); Chloride 103 mmol/L (98-107); Potassium 3.7 mmol/L (3.5-5.1); Sodium 140 mmol/L (136-145)
[2025-07-24 07:20] LABS: Calcium 9.2 mg/dL (8.7-10.4)
[2025-07-24 07:24] LABS: Glucose 104 mg/dL (74-106)
[2025-07-24 07:31] LABS: BUN/Creatinine Ratio 16.1 (10.0-20.0); Blood Urea Nitrogen < 5 mg/dL (9-23)
[2025-07-24] MEDS: DOXYCYCLINE 100MG/100ML 100 ML IV SCH (12:36)
--- NOTE | 2025-07-24 13:12 | DVH ---
CHEST RADIOGRAPH INDICATION: sob TECHNIQUE: Single frontal view of the chest was obtained COMPARISON: XY CHEST PORTABLE on DOS: 07/21/25, XR CHEST 1 VIEW on DOS: 07/10/25, XR CHEST 1 VIEW on DOS: 04/04/25, XR CHEST 1 VIEW on DOS: 04/03/25, XR CHEST 1 VIEW on DOS: 03/15/25 FINDINGS: Lines and Tubes: None Lungs: No focal consolidation. Pleura: No effusion. No pneumothorax. Cardiomediastinal contours: Unremarkable Bones: No acute osseous abnormality. IMPRESSION: 1. No acute cardiopulmonary disease.
--- NOTE | 2025-07-24 13:58 | DVHPNRES ---
Progress Note Date Seen: Jul 24, 2025 Resident Creating Document: REYMUNDO HOPKINS RESIDENT Medical Necessity Reason Pt with a Central, PICC or Fol: No Subjective Review of Systems 50-year-old female with a past medical history of cerebral palsy, right shoulder dislocation, epilepsy, G-tube, nonverbal, nonambulatory,with ntellectual disability was brought to the hospital by EMS for hypotension. History was noted from [facility] paperwork As well as ER notes. EMS informed that the patient was brought to the ER as the nursing facility noted that the patient's blood pressure was low. On arrival blood pressure was 79/46 mmHg. No other symptoms or modifying factors present at this time. Past Surgical History: Other (Peg tube) Smoke: No ALCOHOL: none Drugs: None Lives: Group Home Domestic Violence: Neg ROS 07/22/2025: Patient was seen and examined by me at the bedside today. Labs and charts reviewed. Patient is nonverbal and nonambulatory. Peg tube is in place. We are giving the patient ceftriaxone for her UTI. For hypotension fluids are ongoing. 07/23/2025: Patient was seen and examined by me at the bedside today. Labs and charts were reviewed. Patient seems less dehydrated and fluids are ongoing. Blood pressure is stable at 98/71 mmHg this morning, which then increased to 116/74 mmHg in the evening. We tried to straight cath the patient for urine culture sample, but the nurse were unable to do it due to patient's anatomy. We will speak to Urology tomorrow for urinary culture sample. 07/24/2025: Patient was seen and examined by me at the bedside today. Fluids are ongoing. Patient requires 2 L of oxygen for saturation maintenance And since WBC increased from 5.2-11.3. Since last x-ray showed mild increased interstitial markings involving the right lung patient was started on doxycycline 100 mg twice a day. Repeat chest x-ray shows no acute cardiopulmonary disease however. Urine culture preliminary report shows young colonies. treatment ongoing. Objective vital signs Vital Sign Date Time Temp Pulse Resp B/P (MAP) Pulse Ox O2 Delivery O2 Flow Rate FiO2 07/24/25 13:00 97.4 91 17 99/61 (74) 95 97.4 07/24/25 08:00 Nasal Cannula* 2 28 Total Intake and Output 07/23/25 07/23/25 07/24/25 15:00 23:00 07:00 Intake Total 1050 ml 87 ml Output Total 200 ml Balance 1050 ml -113 ml medications Current Medications Medications Dose Ordered Sig/Gretchen Route Start Time Stop Time Status Last Admin Dose Admin Sodium Chloride 1,000 ml @ 60 mls/hr [id number] IV 07/21/25 16:15 07/24/25 10:55 60 MLS/HR Acetaminophen/ Hydrocodone Bitart 1 tab Q4HP PRN PO 07/21/25 16:15 Ondansetron HCl 4 mg Q4HP PRN IV 07/21/25 16:15 Acetaminophen 650 mg Q6HP PRN PO 07/21/25 16:15 Nitroglycerin 0.4 mg Q5MINP PRN SL 07/21/25 16:15 Morphine Sulfate 2 mg Q30M PRN IV 07/21/25 16:30 Docusate Sodium 100 mg BIDP PRN GT 07/21/25 16:15 Ceftriaxone Sodium 50 ml @ 100 mls/hr DAILY@09 IV 07/22/25 09:00 07/24/25 10:17 100 MLS/HR Levetiracetam 100 mg BID GT 07/22/25 10:00 07/24/25 10:17 100 MG Valproate Sodium 500 mg DAILY PEG 07/22/25 10:00 07/24/25 10:18 500 MG Enoxaparin Sodium 30 mg DAILY SC 07/23/25 10:00 07/24/25 10:18 30 MG Enteral Nutritional Formula 1,000 ml 30ML/HR GT 07/22/25 19:00 07/23/25 21:22 1,000 ML Doxycycline Hyclate 100 ml @ 50 mls/hr Q12H IV 07/24/25 11:30 07/24/25 12:36 50 MLS/HR Examination Pt is lying on bed General Appearance: Patient does not appear in acute distress HEENT: Atraumatic, Mucous membranes moist/pink Respiratory: Clear to auscultation, Normal air movement, No added sounds Cardiovascular: Regular rate, Normal S1, Normal S2, No murmurs Abdominal: Active bowel sounds, Soft, no distention, presence of PEG tube in the epigastric region Extremities: No edema, Normal pulses, No tenderness/swelling Skin: No Significant rash, except past surgical scars Neuro: Patient unable to move as she has cerebral palsy laboratory and microbiology Laboratory Tests 07/24/25 06:52 07/24/25 06:32 Test 07/24/25 06:32 Range/Units Serum Glucose 104 74-106 mg/dL Microbiology Date/Time Source Procedure Growth Status 07/22/25 19:50 Voided Urine Urine Culture - Preliminary Resulted 07/21/25 12:05 Blood Blood Culture - Preliminary Resulted Labs and/or images reviewed: Labs reviewed by me, Image(s) reviewed by me Problem List/Assessment/Plan Problem List/Assessment/Plan # Sepsis due to Acute complicated UTI # Volume depletion, hypotension - ceftriaxone 1 g IV daily - Zofran 4 mg q.4 PRN IV for nausea and vomiting - urine culture - 1 L during a lactate and 2 L NS given - if MAP is less than 65, pressors indicated # Acute hypoxic respiratory failure # Possible Gram-positive/ negative pneumonia - chest x-ray shows mild increased interstitial markings involving the right lung on 07/21/2025 - patient on 2 L oxygen via nasal cannula - doxycycline 100 mg b.i.d. daily - repeat chest x-ray shows no cardiopulmonary disease # History of epilepsy # History of cerebral palsy - continue valproate sodium 500 mg daily through PEG tube - continue Keppra 100 mg b.i.d. through PEG tube - [place] 5/325 mg p.o. q.4 PRN - acetaminophen 650 mg q.6 PRN p.o. - morphine 2 mg Q 30 minute PRN IV - Colace liquid 100 mg b.i.d. for constipation PRN # Severe protein calorie malnutrition -Jevity 1.230 mL/hour through PEG tube as suggested by high school counselor DVT prophylaxis: Lovenox 30 mg subcutaneously daily Goals of care discussed with the patient for more than 27 minutes: Full code status Case discussed with Dr. Ribera, patient and nurse. Plan discussed with: Patient, Other (rn) My Orders My Orders Orders - REYMUNDO HOPKINS RESIDENT Procedure Category Date Status Time Chest Xray 1 View XY 07/24/25 Resulted 10:21 Doxycycline PHA 07/24/25 In Process 100mg/100ml 11:30 Dietary Evaluation Review Comments: Tube Feeding: Jevity 1.2 @30ml/hr To avoid refeeding syndrome, Initiate infusion @10ml/hr, increase [id number] unitl meeting the goalt rate of 30ml/hr Provide Reyes BID for promoting wound healing (via TF, or PO if medically feasible and passing PRODUCT LISTER eval. Expected Outcomes/Goals: Improved nutrition status, prevent catabolism Visit Coding STANDARD RES Billing Provider: JAMIE RIBERA MD Date of Service if different f: Jul 24, 2025 Common Visit Codes: [id number] INP/OBS CARE(HIGH) REYMUNDO HOPKINS RESIDENT Jul 24, 2025 13:58 JAMIE RIBERA MD Jul 24, 2025 23:43
[2025-07-24] MEDS: ACETAMINOPHEN 325 MG TAB PO PRN (21:53)
[2025-07-25] VITALS (8 sets, daily range): BP systolic 95–133; BP diastolic 41–84; PULSE 86–108; RESP 18–20; TEMP 97.3–100.2; O2SAT 90–94
[2025-07-25 07:05] LABS: Hematocrit 34.9 % (36.0-46.0); Hemoglobin 11.7 g/dL (12.2-16.2); Mean Corpuscular Hemoglobin 30.5 pg (28.0-32.0); Mean Corpuscular Volume 91.5 fL (80.0-100.0); Nucleated Red Blood Cells % 0.2 %
[2025-07-25 08:30] LABS: Sodium 143 mmol/L (136-145)
[2025-07-25 08:31] LABS: Anion Gap 11 (5-15); Calcium 9.4 mg/dL (8.7-10.4); Carbon Dioxide 24 mmol/L (20-31)
[2025-07-25 08:36] LABS: Glucose 89 mg/dL (74-106)
[2025-07-25 08:41] LABS: BUN/Creatinine Ratio 17.2 (10.0-20.0); Blood Urea Nitrogen < 5 mg/dL (9-23); Chloride 108 mmol/L (98-107); Potassium 3.4 mmol/L (3.5-5.1)
[2025-07-25] MEDS: POTASSIUM CHL 20MEQ/100ML 100 ML IV SCH (13:30)
--- NOTE | 2025-07-25 15:28 | DVHPNRES ---
Progress Note Date Seen: Jul 25, 2025 Resident Creating Document: REYMUNDO HOPKINS RESIDENT Medical Necessity Reason Pt with a Central, PICC or Fol: No Subjective Review of Systems 50-year-old female with a past medical history of cerebral palsy, right shoulder dislocation, epilepsy, G-tube, nonverbal, nonambulatory,with ntellectual disability was brought to the hospital by EMS for hypotension. History was noted from [facility] paperwork As well as ER notes. EMS informed that the patient was brought to the ER as the nursing facility noted that the patient's blood pressure was low. On arrival blood pressure was 79/46 mmHg. No other symptoms or modifying factors present at this time. Past Surgical History: Other (Peg tube) Smoke: No ALCOHOL: none Drugs: None Lives: Custodial Domestic Violence: Neg ROS 07/22/2025: Patient was seen and examined by me at the bedside today. Labs and charts reviewed. Patient is nonverbal and nonambulatory. Peg tube is in place. We are giving the patient ceftriaxone for her UTI. For hypotension fluids are ongoing. 07/23/2025: Patient was seen and examined by me at the bedside today. Labs and charts were reviewed. Patient seems less dehydrated and fluids are ongoing. Blood pressure is stable at 98/71 mmHg this morning, which then increased to 116/74 mmHg in the evening. We tried to straight cath the patient for urine culture sample, but the nurse were unable to do it due to patient's anatomy. We will speak to Urology tomorrow for urinary culture sample. 07/24/2025: Patient was seen and examined by me at the bedside today. Fluids are ongoing. Patient requires 2 L of oxygen for saturation maintenance And since WBC increased from 5.2-11.3. Since last x-ray showed mild increased interstitial markings involving the right lung patient was started on doxycycline 100 mg twice a day. Repeat chest x-ray shows no acute cardiopulmonary disease however. Urine culture preliminary report shows young colonies. treatment ongoing. 07/25/2025: Patient was seen and examined by me at the bedside today. Labs and charts were reviewed. Patient was maintaining SpO2 at 90% in room air and SpO2 became 95% after 2 L of O2. Doxycycline was started yesterday. Chest x-ray shows no cardiopulmonary disease. Pending final urinary culture reports. We will try to wean the patient of off oxygen and then discharge her when we are able to Objective vital signs Vital Sign Date Time Temp Pulse Resp B/P (MAP) Pulse Ox O2 Delivery O2 Flow Rate FiO2 07/25/25 13:00 99.3 93 20 112/41 (64) 92 99.3 07/25/25 08:00 Nasal Cannula* 2 28 Total Intake and Output 07/24/25 07/24/25 07/25/25 15:00 23:00 07:00 Intake Total 0 ml 193 ml Balance 0 ml 193 ml medications Current Medications Medications Dose Ordered Sig/Gretchen Route Start Time Stop Time Status Last Admin Dose Admin Sodium Chloride 1,000 ml @ 60 mls/hr [id number] IV 07/21/25 16:15 07/24/25 22:17 60 MLS/HR Acetaminophen/ Hydrocodone Bitart 1 tab Q4HP PRN PO 07/21/25 16:15 Ondansetron HCl 4 mg Q4HP PRN IV 07/21/25 16:15 Acetaminophen 650 mg Q6HP PRN PO 07/21/25 16:15 07/24/25 21:53 650 MG Nitroglycerin 0.4 mg Q5MINP PRN SL 07/21/25 16:15 Morphine Sulfate 2 mg Q30M PRN IV 07/21/25 16:30 Docusate Sodium 100 mg BIDP PRN GT 07/21/25 16:15 Ceftriaxone Sodium 50 ml @ 100 mls/hr DAILY@09 IV 07/22/25 09:00 07/25/25 09:17 100 MLS/HR Levetiracetam 100 mg BID GT 07/22/25 10:00 07/25/25 09:18 100 MG Valproate Sodium 500 mg DAILY PEG 07/22/25 10:00 07/25/25 09:18 500 MG Enoxaparin Sodium 30 mg DAILY SC 07/23/25 10:00 07/25/25 09:18 30 MG Enteral Nutritional Formula 1,000 ml 30ML/HR GT 07/22/25 19:00 07/24/25 22:24 1,000 ML Doxycycline Hyclate 100 ml @ 50 mls/hr Q12H IV 07/24/25 11:30 07/25/25 12:29 50 MLS/HR Potassium Chloride 100 ml @ 50 mls/hr Q2H IV 07/25/25 13:30 07/25/25 17:29 07/25/25 13:30 50 MLS/HR Examination Pt is lying on bed General Appearance: Patient does not appear in acute distress HEENT: Atraumatic, Mucous membranes moist/pink, on 2 L of oxygen via nasal cannula Respiratory: Clear to auscultation, Normal air movement, No added sounds Cardiovascular: Regular rate, Normal S1, Normal S2, No murmurs Abdominal: Active bowel sounds, Soft, no distention, presence of PEG tube in the epigastric region Extremities: No edema, Normal pulses, No tenderness/swelling Skin: No Significant rash, except past surgical scars Neuro: Patient unable to move as she has cerebral palsy laboratory and microbiology Laboratory Tests 07/25/25 05:56 Test 07/25/25 05:56 Range/Units Serum Glucose 89 74-106 mg/dL Microbiology Date/Time Source Procedure Growth Status 07/22/25 19:50 Voided Urine Urine Culture - Preliminary Resulted 07/21/25 12:05 Blood Blood Culture - Final Staph hominis subsp homins Staphylococcus auricularis Complete Labs and/or images reviewed: Labs reviewed by me, Image(s) reviewed by me Problem List/Assessment/Plan Problem List/Assessment/Plan # Sepsis due to Acute complicated UTI # Volume depletion, hypotension - ceftriaxone 1 g IV daily - Zofran 4 mg q.4 PRN IV for nausea and vomiting - urine culture - 1 L during a lactate and 2 L NS given - if MAP is less than 65, pressors indicated # Acute hypoxic respiratory failure # possible Gram-positive/ negative pneumonia - chest x-ray shows mild increased interstitial markings involving the right lung on 07/21/2025 - doxycycline 100 mg b.i.d. daily - repeat chest x-ray shows no cardiopulmonary disease Done on 07/24/2025 - patient still requires 2 L of oxygen via nasal cannula to maintain saturation between 94-95 # History of epilepsy # History of cerebral palsy - continue valproate sodium 500 mg daily through PEG tube - continue Keppra 100 mg b.i.d. through PEG tube - [place] 5/325 mg p.o. q.4 PRN - acetaminophen 650 mg q.6 PRN p.o. - morphine 2 mg Q 30 minute PRN IV - Colace liquid 100 mg b.i.d. for constipation PRN # Severe protein calorie malnutrition -Jevity 1.230 mL/hour through PEG tube as suggested by molecular modeler DVT prophylaxis: Lovenox 30 mg subcutaneously daily Goals of care discussed with the patient for more than 27 minutes: Full code status Case discussed with Dr. Ribera, patient and nurse. Plan discussed with: Patient, Other (rn) My Orders My Orders Orders - REYMUNDO HOPKINS RESIDENT Procedure Category Date Status Time Potassium Chl PHA 07/25/25 In Process 20meq/100ml 13:30 Complete Blood Count LAB 07/26/25 Verified 04:00 Basic Metabolic Panel LAB 07/25/25 Transmitted 15:23 Dietary Evaluation Review Comments: Tube Feeding: Jevity 1.2 @30ml/hr To avoid refeeding syndrome, Initiate infusion @10ml/hr, increase [id number] unitl meeting the goalt rate of 30ml/hr Provide Reyes BID for promoting wound healing (via TF, or PO if medically feasible and passing EMERGENCY VETERINARIAN eval. Expected Outcomes/Goals: Improved nutrition status, prevent catabolism Visit Coding STANDARD RES Billing Provider: JAMIE RIBERA MD Date of Service if different f: Jul 25, 2025 Common Visit Codes: [id number] INP/OBS CARE(HIGH) REYMUNDO HOPKINS RESIDENT Jul 25, 2025 15:28 JAMIE RIBERA MD Jul 25, 2025 23:21
[2025-07-25 16:41] LABS: Potassium 4.2 mmol/L (3.5-5.1); Sodium 143 mmol/L (136-145)
[2025-07-25 16:42] LABS: Anion Gap 9 (5-15); Calcium 9.3 mg/dL (8.7-10.4); Carbon Dioxide 24 mmol/L (20-31)
[2025-07-25 16:47] LABS: Glucose 99 mg/dL (74-106)
[2025-07-25 16:57] LABS: BUN/Creatinine Ratio 15.2 (10.0-20.0); Blood Urea Nitrogen < 5 mg/dL (9-23); Chloride 110 mmol/L (98-107)
[2025-07-25] MEDS: HYDROcodone-ACET 5/325MG TAB PO PRN (20:54)
[2025-07-26] VITALS (8 sets, daily range): BP systolic 94–110; BP diastolic 62–78; PULSE 72–98; RESP 16–20; TEMP 98.2–99.7; O2SAT 91–99
[2025-07-26 07:33] LABS: Hematocrit 35.5 % (36.0-46.0); Hemoglobin 11.8 g/dL (12.2-16.2); Mean Corpuscular Hemoglobin 30.4 pg (28.0-32.0); Mean Corpuscular Volume 91.4 fL (80.0-100.0); Nucleated Red Blood Cells % 0.2 %
--- NOTE | 2025-07-26 14:26 | DVHPN2 ---
Subjective The patient seen and examined at bedside. Still very weak. Reviewed: Care Plan, H&P, Labs, Medications, Previous Orders, Radiology Changes from previous H/P or p: No Changes ENT: No Ear pain, No Ear discharge, No Nose pain, No Nose discharge, No Nose congestion, No Mouth pain, No Mouth swelling, No Throat pain, No Throat swelling, No Other Objective Vitals Vital Signs Date Time Temp Pulse Resp B/P (MAP) Pulse Ox O2 Delivery O2 Flow Rate FiO2 07/26/25 12:52 99.2 72 16 94/63 (73) 98 99.2 07/26/25 08:00 Nasal Cannula* 2 28 Intake/Output Intake and Output 07/26/25 07:00 Intake Total 250 ml Balance 250 ml Intake Oral 0 ml IV Total 250 ml # Voids 7 # Bowel Movements 4 General Appearance: Alert, Cooperative, No acute distress HEENT: Atraumatic, PERRLA, EOMI, Mucous membr. moist/pink Neck: Supple Lungs: Clear to auscultation, Normal air movement Cardiovascular: Regular rate, Normal S1, Normal S2, No murmurs, Gallops, Rubs Abdomen: Normal bowel sounds, Soft, No tenderness Neuro: Cranial nerves 3-12 NL Psych/Mental Status: Mental status NL Medications Current Medications Medications Dose Ordered Sig/Gretchen Route Start Time Stop Time Status Last Admin Dose Admin Sodium Chloride 1,000 ml @ 60 mls/hr [id number] IV 07/21/25 16:15 07/26/25 02:12 60 MLS/HR Acetaminophen/ Hydrocodone Bitart 1 tab Q4HP PRN PO 07/21/25 16:15 07/26/25 10:09 1 TAB Ondansetron HCl 4 mg Q4HP PRN IV 07/21/25 16:15 Acetaminophen 650 mg Q6HP PRN PO 07/21/25 16:15 07/24/25 21:53 650 MG Nitroglycerin 0.4 mg Q5MINP PRN SL 07/21/25 16:15 Morphine Sulfate 2 mg Q30M PRN IV 07/21/25 16:30 Docusate Sodium 100 mg BIDP PRN GT 07/21/25 16:15 Ceftriaxone Sodium 50 ml @ 100 mls/hr DAILY@09 IV 07/22/25 09:00 07/26/25 09:58 100 MLS/HR Levetiracetam 100 mg BID GT 07/22/25 10:00 07/26/25 09:58 100 MG Valproate Sodium 500 mg DAILY PEG 07/22/25 10:00 07/26/25 09:58 500 MG Enoxaparin Sodium 30 mg DAILY SC 07/23/25 10:00 07/26/25 09:57 30 MG Enteral Nutritional Formula 1,000 ml 30ML/HR GT 07/22/25 19:00 07/24/25 22:24 1,000 ML Doxycycline Hyclate 100 ml @ 50 mls/hr Q12H IV 07/24/25 11:30 07/26/25 12:19 50 MLS/HR Laboratory Results Laboratory Tests 07/25/25 16:00 07/26/25 06:15 Chemistry Test 07/25/25 16:00 Calcium Level 9.3 mg/dL (8.7-10.4) Urinalysis Test 07/21/25 16:33 07/23/25 21:20 Urine WBC Clumps Present /hpf (None Seen) Urine Mucus Few (None Seen) Urine Color Colorless (Yellow) Urine Clarity Clear (Clear) Urine pH 7.0 (5.0-9.0) Urine Specific [place] 1.005 (1.001-1.035) Urine Protein Negative (Negative) Urine Ketones Negative (Negative) Urine Blood Negative /uL (Negative) Urine Nitrite Negative (Negative) Urine Bilirubin Negative (Negative) Urine Urobilinogen Normal mg/dL (Negative) Urine Leukocyte Esterase Negative /uL (Negative) Urine RBC None seen /hpf (0 - 4) Urine Microscopic WBC 1 /HPF (0-5) Urine Squamous Epithelial Cells Few /hpf (<5) Urine Bacteria None seen /hpf (None Seen) Urine Glucose Normal mg/dL (Normal) Microbiology Microbiology Date/Time Source Procedure Growth Status 07/23/25 21:20 Urine - Catheterized Urine Culture - Final Complete 07/21/25 12:05 Blood Blood Culture - Final Staph hominis subsp homins Staphylococcus auricularis Complete Labs and/or images reviewed: Labs reviewed by me Assessment/Plan Assessment/Plan # Sepsis due to Acute complicated UTI # Volume depletion, hypotension - ceftriaxone 1 g IV daily - Zofran 4 mg q.4 PRN IV for nausea and vomiting - urine culture - 1 L during a lactate and 2 L NS given - if MAP is less than 65, pressors indicated # Acute hypoxic respiratory failure # possible Gram-positive/ negative pneumonia - chest x-ray shows mild increased interstitial markings involving the right lung on 07/21/2025 - doxycycline 100 mg b.i.d. daily - repeat chest x-ray shows no cardiopulmonary disease Done on 07/24/2025 - patient still requires 2 L of oxygen via nasal cannula to maintain saturation between 94-95 # History of epilepsy # History of cerebral palsy - continue valproate sodium 500 mg daily through PEG tube - continue Keppra 100 mg b.i.d. through PEG tube - [place] 5/325 mg p.o. q.4 PRN - acetaminophen 650 mg q.6 PRN p.o. - morphine 2 mg Q 30 minute PRN IV - Colace liquid 100 mg b.i.d. for constipation PRN # Severe protein calorie malnutrition -Jevity 1.230 mL/hour through PEG tube as suggested by nurse assistant Continue current management. Plan discussed with: Patient Date of Service: Jul 26, 2025 Billing Provider: JAMIE HOOPER MD Common Visit Codes: [id number] INP/OBS CARE(HIGH) JAMIE HOOPER MD Jul 26, 2025 14:26
[2025-07-27] VITALS (9 sets, daily range): BP systolic 95–123; BP diastolic 64–88; PULSE 76–102; RESP 16–20; TEMP 97.8–99.4; O2SAT 94–99
[2025-07-27 07:16] LABS: Hematocrit 35.0 % (36.0-46.0); Hemoglobin 11.6 g/dL (12.2-16.2); Mean Corpuscular Hemoglobin 30.3 pg (28.0-32.0); Mean Corpuscular Volume 91.5 fL (80.0-100.0); Nucleated Red Blood Cells % 0.1 %
[2025-07-27 07:26] LABS: Chloride 105 mmol/L (98-107); Potassium 4.3 mmol/L (3.5-5.1); Sodium 136 mmol/L (136-145)
[2025-07-27 07:27] LABS: Anion Gap 6 (5-15); Carbon Dioxide 25 mmol/L (20-31)
[2025-07-27 07:28] LABS: Calcium 9.1 mg/dL (8.7-10.4)
[2025-07-27 07:32] LABS: Glucose 95 mg/dL (74-106)
[2025-07-27 07:33] LABS: BUN/Creatinine Ratio 20.8 (10.0-20.0); Blood Urea Nitrogen 5 mg/dL (9-23)
[2025-07-27] MEDS ORDERED: VANCOMYCIN PER PHARMACY 0 MG IV SCH (09:00)
[2025-07-27] MEDS ORDERED: VANCOMYCIN 750mg/100mL IV ONE (10:00)
[2025-07-27] MEDS: LINEZOLID 600MG/300ML 300 ML IV SCH (11:00)
--- NOTE | 2025-07-27 15:44 | DVHPNRES ---
Progress Note Date Seen: Jul 27, 2025 Resident Creating Document: VALERIA PINA RESIDENT Medical Necessity Reason Pt with a Central, PICC or Fol: No Subjective Patient reports: No new complaints Objective vital signs Vital Sign Date Time Temp Pulse Resp B/P (MAP) Pulse Ox O2 Delivery O2 Flow Rate FiO2 07/27/25 13:00 98.1 86 16 95/66 (76) 98 98.1 07/27/25 07:58 Nasal Cannula* 2 28 Total Intake and Output 07/26/25 07/26/25 07/27/25 15:00 23:00 07:00 Intake Total 750 ml 100 ml Balance 750 ml 100 ml medications Current Medications Medications Dose Ordered Sig/Gretchen Route Start Time Stop Time Status Last Admin Dose Admin Sodium Chloride 1,000 ml @ 60 mls/hr [id number] IV 07/21/25 16:15 07/26/25 02:12 60 MLS/HR Acetaminophen/ Hydrocodone Bitart 1 tab Q4HP PRN PO 07/21/25 16:15 07/27/25 09:21 1 TAB Ondansetron HCl 4 mg Q4HP PRN IV 07/21/25 16:15 Acetaminophen 650 mg Q6HP PRN PO 07/21/25 16:15 07/24/25 21:53 650 MG Nitroglycerin 0.4 mg Q5MINP PRN SL 07/21/25 16:15 Morphine Sulfate 2 mg Q30M PRN IV 07/21/25 16:30 Docusate Sodium 100 mg BIDP PRN GT 07/21/25 16:15 Levetiracetam 100 mg BID GT 07/22/25 10:00 07/27/25 09:20 100 MG Valproate Sodium 500 mg DAILY PEG 07/22/25 10:00 07/27/25 09:20 500 MG Enoxaparin Sodium 30 mg DAILY SC 07/23/25 10:00 07/27/25 09:19 30 MG Enteral Nutritional Formula 1,000 ml 30ML/HR GT 07/22/25 19:00 07/24/25 22:24 1,000 ML Linezolid 300 ml @ 150 mls/hr Q12HR IV 07/27/25 11:00 07/27/25 11:00 150 MLS/HR Famotidine 20 mg DAILY IV 07/28/25 10:00 UNV Examination General Appearance: Alert, No acute distress, The patient seen and examined at bedside. HEENT: Atraumatic, PERRLA, EOMI, Mucous membr. moist/pink Neck: Supple Lungs: Clear to auscultation, Normal air movement Cardiovascular: Regular rate, Normal S1, Normal S2, No murmurs, Gallops, Rubs Abdomen: Normal bowel sounds, Soft, No tenderness. PEG tube. Neuro: Grossly Cranial nerves 3-12 NL, baseline nonverbal. difficult to check other function. Psych/Mental Status: Mental status NL laboratory and microbiology Laboratory Tests 07/27/25 07:01 Test 07/27/25 07:01 Range/Units Serum Glucose 95 74-106 mg/dL Microbiology Date/Time Source Procedure Growth Status 07/23/25 21:20 Urine - Catheterized Urine Culture - Final Complete 07/21/25 12:05 Blood Blood Culture - Final Staph hominis subsp homins Staphylococcus auricularis Complete Labs and/or images reviewed: Labs reviewed by me, Image(s) reviewed by me Problem List/Assessment/Plan Problem List/Assessment/Plan Maynor Krystina, 50-year-old female with a history of cerebral palsy, epilepsy, intellectual disability, G-tube dependence, and prior right shoulder dislocation, who is nonverbal and nonambulatory, was brought from a retirement to the hospital by EMS for hypotension. Initial blood pressure was 79/46 mmHg. History was obtained from retirement paperwork and ER notes. No other symptoms or modifying factors were reported. The patient is currently being treated for UTI with ceftriaxone and managed with IV fluids for hypotension. Over the hospital course, blood pressure improved, oxygen supplementation was required for hypoxemia, and doxycycline was initiated for suspected pneumonia based on rising WBC and chest imaging. Urine culture is pending, and discharge is planned once oxygen is weaned. Assessment: # Sepsis due to Acute complicated UTI With Enterococcus faecalis # bacteremia with Staphylococcus auricularis/hominis # Volume depletion, hypotension # Acute hypoxic respiratory failure till on 2 L of oxygen, # Community acquired pneumonia, possible Gram-positive/ negative pneumonia, r/o viral pneumonia # History of epilepsy, on valproate, [jeumutpom amd lacosamide. # History of cerebral palsy # Moderate to Severe protein energy malnutrition # Atelectasis of b/l lungs # Chronic normocytic anemia. # GERD # Mild hypokalemia, resolved. Plan: # continue PEG tube care # Continue gentle hydration, wean oxygen to keep the SpO2 over 94%. # Status post 7 days of ceftriaxone and doxycycline, try incentive spirometry and aspiration precautions. # started on linezolid, close follow up of CBC, day . # Repeat blood culture, check echo, rule out infective endocarditis. # Looks euvolemic, continue IV hydration gentle fluids. # appropriately keep the patient on nutrition supplements, famotidine iv bid fand Lovenox for DVT prophylaxis # continue rest of the management. Goals of care discussed with the patient for more than 31 minutes. Case discussed with the Dr. Ribera. Plan discussed with: Patient, Other (primary team RN) My Orders My Orders Orders - VALERIA PINA Procedure Category Date Status Time Blood Culture MENDEZ 07/28/25 In Process (Pediatric) 04:00 Linezolid 600mg/300ml PHA 07/27/25 In Process (Zyvox) 11:00 Incentive Spirometry ORDERS 07/27/25 Transmitted Q 1hr 11:10 Famotidine Injection PHA 07/28/25 Logged (Pepcid Injection) 10:00 Famotidine Injection PHA 07/27/25 Logged (Pepcid Injection) 15:45 Dietary Evaluation Review Comments: Tube Feeding: Jevity 1.2 @30ml/hr To avoid refeeding syndrome, Initiate infusion @10ml/hr, increase [id number] unitl meeting the goalt rate of 30ml/hr Provide Reyes BID for promoting wound healing (via TF, or PO if medically feasible and passing ETL CONSULTANT eval. Expected Outcomes/Goals: Improved nutrition status, prevent catabolism Date of Service: Jul 27, 2025 Billing Provider: JAMIE RIBERA MD Common Visit Codes: [id number] INP/OBS CARE(HIGH) VALERIA PINA Jul 27, 2025 15:44 JAMIE RIBERA MD Jul 28, 2025 00:16
[2025-07-27] MEDS: FAMOTIDINE (10MG/ML) 2ML VL IV ONE (16:02)
--- NOTE | 2025-07-27 20:12 | DVHSR ---
APPROVED REPORT EXAM: Two-dimensional and M-mode echocardiogram with Doppler and color Doppler. Blood Pressure: 123/88 mmHg INDICATION Rule out infective endocarditis. RISK FACTORS Height: 5'0", Weight: 76 DIMENSIONS LVDd 3.3 (3.8-5.7cm) LA (2D) 2.6 (1.9-4.0cm) Aortic Root 2.8 (2.0-3.7cm) LVDs 2.3 (2.5-4.0cm) LA (MM) (1.9-4.0cm) Aortic Cusp Exc 1.5 (1.5-2.0cm) EF (%) 60.0 (55-70%) Rt. Atrium 2.5 (1.9-4.0cm) Asc. Aorta cm IVSd 0.7 (0.7-1.1cm) RV (D) 2.4 (1.8-2.4cm) PWd 0.7 (0.7-1.1cm) Mitral Valve Mitral Mitral Stenosis E wave 0.71m/s MV Mean GR. mmHg A wave 0.71m/s MV Peak GR. mmHg E/A ratio 1.0 2D MVA cm2 DECEL Time 239ms PRESS 1/2 Time ms Aortic Valve Aortic Valve Aortic Stenosis V1 0.97m/s AO Mean GR. 2mmHg V2 0.97m/s AO Peak GR. 4mmHg LVOT Diameter 1.6 (1.8-2.4cm) Doppler BLANCHE 2.01cm2 Pulmonic Valve V2 0.69m/s Tricuspid Valve TR Velocity 2.30m/s RVSP 29mmHg Other Information Technically limited study due to body habitus, patient contracted with knees up to chest. Conclusion Left ventricular: Cavity size is normal. Systolic function is normal. Estimated ejection fraction 55-60%. Diastolic function is normal. Right ventricle: Systolic function is low normal. Mitral valve: There is no stenosis. There regurgitation. No signs of vegetation on mitral leaflets. Aortic valve: The valve is tricuspid. There was no stenosis or regurgitation. Tricuspid valve: There is mild regurgitation. There was no stenosis. Pericardial: There was no pericardial effusion If high index of suspicion for infective endocarditis should consider transesophageal echocardiogram (VAN).
[2025-07-28] VITALS (8 sets, daily range): BP systolic 97–122; BP diastolic 60–83; PULSE 71–92; RESP 16–19; TEMP 97.4–98.6; O2SAT 93–99
[2025-07-28] MEDS: DOCUSATE ORAL LIQUID 100 MG/10 ML UD GT PRN (05:13)
[2025-07-28 07:31] LABS: Hematocrit 36.4 % (36.0-46.0); Hemoglobin 12.0 g/dL (12.2-16.2); Mean Corpuscular Hemoglobin 30.2 pg (28.0-32.0); Mean Corpuscular Volume 91.9 fL (80.0-100.0); Nucleated Red Blood Cells % 0.2 %
[2025-07-28 07:35] LABS: Chloride 103 mmol/L (98-107); Potassium 4.5 mmol/L (3.5-5.1); Sodium 138 mmol/L (136-145)
[2025-07-28 07:36] LABS: Anion Gap 11 (5-15); Calcium 9.0 mg/dL (8.7-10.4); Carbon Dioxide 24 mmol/L (20-31)
[2025-07-28 07:41] LABS: BUN/Creatinine Ratio 45.8 (10.0-20.0); Blood Urea Nitrogen 11 mg/dL (9-23); Glucose 91 mg/dL (74-106)
[2025-07-28] MEDS: FAMOTIDINE (10MG/ML) 2ML VL IV SCH (10:09)
--- NOTE | 2025-07-28 17:58 | DVHPNRES ---
Progress Note Date Seen: Jul 28, 2025 Resident Creating Document: REYMUNDO HOPKINS RESIDENT Medical Necessity Reason Pt with a Central, PICC or Fol: No Subjective Review of Systems 07/28/2025 Patient is nonverbal. She was seen and examined by me at the bedside today. Labs and charts reviewed. Patient still on 1L oxygen. Objective vital signs Vital Sign Date Time Temp Pulse Resp B/P (MAP) Pulse Ox O2 Delivery O2 Flow Rate FiO2 07/28/25 16:41 98.0 89 18 120/69 (86) 99 98.0 07/28/25 08:00 Nasal Cannula* 1 24 Total Intake and Output 07/27/25 07/27/25 07/28/25 15:00 23:00 07:00 Intake Total 900 ml 1140 ml Balance 900 ml 1140 ml medications Current Medications Medications Dose Ordered Sig/Gretchen Route Start Time Stop Time Status Last Admin Dose Admin Sodium Chloride 1,000 ml @ 60 mls/hr [id number] IV 07/21/25 16:15 07/27/25 21:35 60 MLS/HR Acetaminophen/ Hydrocodone Bitart 1 tab Q4HP PRN PO 07/21/25 16:15 07/27/25 21:23 1 TAB Ondansetron HCl 4 mg Q4HP PRN IV 07/21/25 16:15 Acetaminophen 650 mg Q6HP PRN PO 07/21/25 16:15 07/24/25 21:53 650 MG Nitroglycerin 0.4 mg Q5MINP PRN SL 07/21/25 16:15 Morphine Sulfate 2 mg Q30M PRN IV 07/21/25 16:30 Docusate Sodium 100 mg BIDP PRN GT 07/21/25 16:15 07/28/25 05:13 100 MG Levetiracetam 100 mg BID GT 07/22/25 10:00 07/28/25 10:09 100 MG Valproate Sodium 500 mg DAILY PEG 07/22/25 10:00 07/28/25 10:08 500 MG Enoxaparin Sodium 30 mg DAILY SC 07/23/25 10:00 07/28/25 10:09 30 MG Enteral Nutritional Formula 1,000 ml 30ML/HR GT 07/22/25 19:00 07/28/25 05:03 1,000 ML Linezolid 300 ml @ 150 mls/hr Q12HR IV 07/27/25 11:00 07/28/25 10:09 150 MLS/HR Famotidine 20 mg DAILY IV 07/28/25 10:00 07/28/25 10:09 20 MG Examination Pt is lying on bed General Appearance: Nonverbal, immobile, Not in acute distress HEENT: Atraumatic, Mucous membranes moist/pink, on 1 L O2 via nasal cannula Respiratory: Clear to auscultation, Normal air movement, No added sounds Cardiovascular: Regular rate, Normal S1, Normal S2, No murmurs Abdominal: Active bowel sounds, Soft, no distention, PEG tube present Extremities: No edema, Normal pulses, No tenderness/swelling Skin: No Significant rash, except past surgical scars Neuro: Grossly Cranial nerves 3-12 NL, baseline nonverbal. difficult to check other function. laboratory and microbiology Laboratory Tests 07/28/25 06:24 Test 07/28/25 06:24 Range/Units Serum Glucose 91 74-106 mg/dL Microbiology Date/Time Source Procedure Growth Status 07/27/25 11:33 Blood Blood Culture - Preliminary NO GROWTH AFTER 24 HOURS OF INCUBATION. Resulted 07/23/25 21:20 Urine - Catheterized Urine Culture - Final Complete Labs and/or images reviewed: Labs reviewed by me, Image(s) reviewed by me Problem List/Assessment/Plan Problem List/Assessment/Plan Krystina Mcguire, 50-year-old female with a history of cerebral palsy, epilepsy, intellectual disability, G-tube dependence, and prior right shoulder dislocation, who is nonverbal and nonambulatory, was brought from a [facility] to the hospital by EMS for hypotension. Initial blood pressure was 79/46 mmHg. History was obtained from [facility] paperwork and ER notes. No other symptoms or modifying factors were reported. The patient is currently being treated for UTI with ceftriaxone and managed with IV fluids for hypotension. Over the hospital course, blood pressure improved, oxygen supplementation was required for hypoxemia, and doxycycline was initiated for suspected pneumonia based on rising WBC and chest imaging. Urine culture is pending, and discharge is planned once oxygen is weaned. Assessment: # Sepsis due to Acute complicated UTI With Enterococcus faecalis # bacteremia with Staphylococcus auricularis/hominis # Volume depletion, hypotension # Acute hypoxic respiratory failure till on 2 L of oxygen, # Community acquired pneumonia, possible Gram-positive/ negative pneumonia, r/o viral pneumonia # History of epilepsy, on valproate, [jeumutpom amd lacosamide. # History of cerebral palsy # Moderate to Severe protein energy malnutrition # Atelectasis of b/l lungs # Chronic normocytic anemia. # GERD # Mild hypokalemia, resolved. Plan: # continue PEG tube care # Continue gentle hydration, wean oxygen to keep the SpO2 over 94%. # Status post 7 days of ceftriaxone and doxycycline, try incentive spirometry and aspiration precautions. # started on linezolid, close follow up of CBC, day . # Repeated blood culture Preliminary shows no growth after 24 hours # echo shows ejection fraction 55-60%, consider VAN if high index of suspicion for infective endocarditis, follow blood culture. # Looks euvolemic, continue IV hydration gentle fluids. # appropriately keep the patient on nutrition supplements, famotidine iv bid and Lovenox for DVT prophylaxis # continue rest of the management. # continue sacral wound care DVT prophylaxis: Lovenox 30 mg subcutaneously daily Goals of care discussed with the patient for more than 27 minutes: Full code status Case discussed with Dr. Ribera, patient and nurse. Plan discussed with: Patient Dietary Evaluation Review Comments: Tube Feeding: Jevity 1.2 @30ml/hr To avoid refeeding syndrome, Initiate infusion @10ml/hr, increase [id number] unitl meeting the goalt rate of 30ml/hr Provide Reyes BID for promoting wound healing (via TF, or PO if medically feasible and passing SUPERVISOR CLAM BED eval. Expected Outcomes/Goals: Improved nutrition status, prevent catabolism Visit Coding STANDARD RES Billing Provider: JAMIE RIBERA MD Date of Service if different f: Jul 28, 2025 Common Visit Codes: [id number] INP/OBS CARE(HIGH) REYMUNDO HOPKINS RESIDENT Jul 28, 2025 17:58
[2025-07-29] VITALS (8 sets, daily range): BP systolic 103–132; BP diastolic 62–80; PULSE 65–87; RESP 15–18; TEMP 97.5–97.9; O2SAT 94–99
[2025-07-29 07:08] LABS: Chloride 105 mmol/L (98-107); Potassium 4.2 mmol/L (3.5-5.1); Sodium 137 mmol/L (136-145)
[2025-07-29 07:10] LABS: Anion Gap 7 (5-15); Calcium 9.0 mg/dL (8.7-10.4); Carbon Dioxide 25 mmol/L (20-31)
[2025-07-29 07:15] LABS: BUN/Creatinine Ratio 24.0 (10.0-20.0); Blood Urea Nitrogen 6 mg/dL (9-23); Glucose 89 mg/dL (74-106)
[2025-07-29 09:27] LABS: Hematocrit 33.5 % (36.0-46.0); Hemoglobin 11.1 g/dL (12.2-16.2); Mean Corpuscular Hemoglobin 30.0 pg (28.0-32.0); Mean Corpuscular Volume 90.9 fL (80.0-100.0); Nucleated Red Blood Cells % 0.3 %
--- NOTE | 2025-07-29 16:37 | DVHPNRES ---
Progress Note Date Seen: Jul 29, 2025 Resident Creating Document: REYMUNDO HOPKINS RESIDENT Medical Necessity Reason Pt with a Central, PICC or Fol: No Subjective Review of Systems 07/29/2025: Patient was seen and examined by me today. Patient is nonverbal and has been weaned off oxygen today, saturating above 92. Possible discharge tomorrow. Objective vital signs Vital Sign Date Time Temp Pulse Resp B/P (MAP) Pulse Ox O2 Delivery O2 Flow Rate FiO2 07/29/25 13:00 97.6 82 18 132/78 (96) 95 97.6 07/29/25 08:00 Nasal Cannula* 1 24 Total Intake and Output 07/28/25 07/28/25 07/29/25 15:00 23:00 07:00 Intake Total 300 ml 0 ml 300 ml Balance 300 ml 0 ml 300 ml medications Current Medications Medications Dose Ordered Sig/Gretchen Route Start Time Stop Time Status Last Admin Dose Admin Sodium Chloride 1,000 ml @ 60 mls/hr [id number] IV 07/21/25 16:15 07/29/25 07:34 60 MLS/HR Acetaminophen/ Hydrocodone Bitart 1 tab Q4HP PRN PO 07/21/25 16:15 07/28/25 22:50 1 TAB Ondansetron HCl 4 mg Q4HP PRN IV 07/21/25 16:15 Acetaminophen 650 mg Q6HP PRN PO 07/21/25 16:15 07/24/25 21:53 650 MG Nitroglycerin 0.4 mg Q5MINP PRN SL 07/21/25 16:15 Morphine Sulfate 2 mg Q30M PRN IV 07/21/25 16:30 Docusate Sodium 100 mg BIDP PRN GT 07/21/25 16:15 07/28/25 05:13 100 MG Levetiracetam 100 mg BID GT 07/22/25 10:00 07/29/25 10:21 100 MG Valproate Sodium 500 mg DAILY PEG 07/22/25 10:00 07/29/25 10:21 500 MG Enoxaparin Sodium 30 mg DAILY SC 07/23/25 10:00 07/29/25 10:23 30 MG Enteral Nutritional Formula 1,000 ml 30ML/HR GT 07/22/25 19:00 07/28/25 05:03 1,000 ML Linezolid 300 ml @ 150 mls/hr Q12HR IV 07/27/25 11:00 07/29/25 10:13 150 MLS/HR Famotidine 20 mg DAILY IV 07/28/25 10:00 07/29/25 10:22 20 MG Examination General Appearance: Nonverbal, immobile, Not in acute distress HEENT: Atraumatic, Mucous membranes moist/pink, on 1 L O2 via nasal cannula Respiratory: Clear to auscultation, Normal air movement, No added sounds Cardiovascular: Regular rate, Normal S1, Normal S2, No murmurs Abdominal: Active bowel sounds, Soft, no distention, PEG tube present Extremities: No edema, Normal pulses, No tenderness/swelling Skin: No Significant rash, except past surgical scars Neuro: Grossly Cranial nerves 3-12 NL, baseline nonverbal. difficult to check other function. laboratory and microbiology Laboratory Tests 07/29/25 08:41 07/29/25 06:18 Test 07/29/25 06:18 Range/Units Serum Glucose 89 74-106 mg/dL Microbiology Date/Time Source Procedure Growth Status 07/27/25 11:33 Blood Blood Culture - Preliminary NO GROWTH AFTER 48 HOURS OF INCUBATION. Resulted 07/23/25 21:20 Urine - Catheterized Urine Culture - Final Complete Labs and/or images reviewed: Labs reviewed by me, Image(s) reviewed by me Problem List/Assessment/Plan Problem List/Assessment/Plan MaynorKrystina, 50-year-old female with a history of cerebral palsy, epilepsy, intellectual disability, G-tube dependence, and prior right shoulder dislocation, who is nonverbal and nonambulatory, was brought from a retirement to the hospital by EMS for hypotension. Initial blood pressure was 79/46 mmHg. History was obtained from retirement paperwork and ER notes. No other symptoms or modifying factors were reported. The patient is currently being treated for UTI with ceftriaxone and managed with IV fluids for hypotension. Over the hospital course, blood pressure improved, oxygen supplementation was required for hypoxemia, and doxycycline was initiated for suspected pneumonia based on rising WBC and chest imaging. Urine culture is pending, and discharge is planned once oxygen is weaned. Assessment: # Sepsis due to Acute complicated UTI With Enterococcus faecalis # bacteremia with Staphylococcus auricularis/hominis # Volume depletion, hypotension # Acute hypoxic respiratory failure # Community acquired pneumonia, possible Gram-positive/ negative pneumonia, r/o viral pneumonia # History of epilepsy, on valproate, [jeumutpom amd lacosamide. # History of cerebral palsy # Moderate to Severe protein energy malnutrition # Atelectasis of b/l lungs # Chronic normocytic anemia. # GERD # Mild hypokalemia, resolved. Plan: # continue PEG tube care # Continue gentle hydration, wean oxygen to keep the SpO2 over 94%. off o2 today # Status post 7 days of ceftriaxone and doxycycline, try incentive spirometry and aspiration precautions. # started on linezolid, close follow up of CBC, day 3. # Repeated blood culture 48 hours after incubation shows no growth # echo shows ejection fraction 55-60% # Looks euvolemic, continue IV hydration gentle fluids. # appropriately keep the patient on nutrition supplements, famotidine iv bid and Lovenox for DVT prophylaxis # continue rest of the management. # continue sacral wound care DVT prophylaxis: Lovenox 30 mg subcutaneously daily Goals of care discussed with the patient for more than 27 minutes: Full code status Case discussed with Dr. Ribera, patient and nurse. Plan discussed with: Patient Dietary Evaluation Review Comments: Tube Feeding: Jevity 1.2 @30ml/hr To avoid refeeding syndrome, Initiate infusion @10ml/hr, increase [id number] unitl meeting the goalt rate of 30ml/hr Provide Reyes BID for promoting wound healing (via TF, or PO if medically feasible and passing BEREAVEMENT COORDINATOR eval. Expected Outcomes/Goals: Improved nutrition status, prevent catabolism Visit Coding STANDARD RES Billing Provider: JAMIE RIBERA MD Date of Service if different f: Jul 29, 2025 Common Visit Codes: [id number] INP/OBS CARE(HIGH) REYMUNDO HOPKINS RESIDENT Jul 29, 2025 16:37
[2025-07-30] VITALS (8 sets, daily range): BP systolic 96–118; BP diastolic 62–76; PULSE 59–89; RESP 16–19; TEMP 97.4–98.1; O2SAT 95–100
[2025-07-30 07:06] LABS: Hematocrit 33.3 % (36.0-46.0); Hemoglobin 11.0 g/dL (12.2-16.2); Mean Corpuscular Hemoglobin 29.9 pg (28.0-32.0); Mean Corpuscular Volume 90.8 fL (80.0-100.0); Nucleated Red Blood Cells % 0.2 %
[2025-07-30 07:09] LABS: Chloride 105 mmol/L (98-107); Potassium 4.2 mmol/L (3.5-5.1); Sodium 139 mmol/L (136-145)
[2025-07-30 07:10] LABS: Anion Gap 8 (5-15); Carbon Dioxide 26 mmol/L (20-31)
[2025-07-30 07:11] LABS: Calcium 9.5 mg/dL (8.7-10.4)
[2025-07-30 07:15] LABS: BUN/Creatinine Ratio 17.6 (10.0-20.0); Glucose 86 mg/dL (74-106)
[2025-07-30 07:27] LABS: Blood Urea Nitrogen 6 mg/dL (9-23)
--- NOTE | 2025-07-30 15:30 | DVHPNRES ---
Progress Note Date Seen: Jul 30, 2025 Resident Creating Document: REYMUNDO HOPKINS RESIDENT Medical Necessity Reason Pt with a Central, PICC or Fol: No Subjective Review of Systems : Patient was seen and examined by me today. Patient needed overnight oxygen of 1 L to maintain saturation of 91%. [facility] to [facility] and they confirmed that they are able to provide oxygen as needed to 3 L and IV antibiotics can be as well. Midline order has been placed. Possible discharge tomorrow Objective vital signs Vital Sign Date Time Temp Pulse Resp B/P (MAP) Pulse Ox O2 Delivery O2 Flow Rate FiO2 07/30/25 13:00 97.6 82 16 118/67 (84) 100 97.6 07/29/25 20:00 Room Air* 0 N/A Nasal Cannula* Total Intake and Output 07/29/25 07/29/25 07/30/25 15:00 23:00 07:00 Intake Total 0 ml 300 ml Balance 0 ml 300 ml medications Current Medications Medications Dose Ordered Sig/Gretchen Route Start Time Stop Time Status Last Admin Dose Admin Sodium Chloride 1,000 ml @ 60 mls/hr [id number] IV 07/21/25 16:15 07/30/25 05:30 60 MLS/HR Acetaminophen/ Hydrocodone Bitart 1 tab Q4HP PRN PO 07/21/25 16:15 07/28/25 22:50 1 TAB Ondansetron HCl 4 mg Q4HP PRN IV 07/21/25 16:15 Acetaminophen 650 mg Q6HP PRN PO 07/21/25 16:15 07/24/25 21:53 650 MG Nitroglycerin 0.4 mg Q5MINP PRN SL 07/21/25 16:15 Morphine Sulfate 2 mg Q30M PRN IV 07/21/25 16:30 Docusate Sodium 100 mg BIDP PRN GT 07/21/25 16:15 07/28/25 05:13 100 MG Levetiracetam 100 mg BID GT 07/22/25 10:00 07/30/25 11:06 100 MG Valproate Sodium 500 mg DAILY PEG 07/22/25 10:00 07/30/25 11:06 500 MG Enoxaparin Sodium 30 mg DAILY SC 07/23/25 10:00 07/30/25 11:06 30 MG Linezolid 300 ml @ 150 mls/hr Q12HR IV 07/27/25 11:00 07/30/25 11:06 150 MLS/HR Enteral Nutritional Formula 1,000 ml 45ML/HR GT 07/30/25 10:00 Famotidine 20 mg Q12HR PEG 07/30/25 22:00 Examination General Appearance: Nonverbal, immobile, Not in acute distress HEENT: Atraumatic, Mucous membranes moist/pink, on 1 L O2 via nasal cannula Respiratory: Clear to auscultation, Normal air movement, No added sounds Cardiovascular: Regular rate, Normal S1, Normal S2, No murmurs Abdominal: Active bowel sounds, Soft, no distention, PEG tube present Extremities: No edema, Normal pulses, No tenderness/swelling Skin: No Significant rash, except past surgical scars Neuro: Grossly Cranial nerves 3-12 NL, baseline nonverbal. difficult to check other function. laboratory and microbiology Laboratory Tests 07/30/25 04:37 Test 07/30/25 04:37 Range/Units Serum Glucose 86 74-106 mg/dL Microbiology Date/Time Source Procedure Growth Status 07/27/25 11:33 Blood Blood Culture - Preliminary NO GROWTH AFTER 72 HOURS OF INCUBATION. Resulted 07/23/25 21:20 Urine - Catheterized Urine Culture - Final Complete Labs and/or images reviewed: Labs reviewed by me, Image(s) reviewed by me Problem List/Assessment/Plan Problem List/Assessment/Plan Krystina Mcguire, 50-year-old female with a history of cerebral palsy, epilepsy, intellectual disability, G-tube dependence, and prior right shoulder dislocation, who is nonverbal and nonambulatory, was brought from a snf to the hospital by EMS for hypotension. Initial blood pressure was 79/46 mmHg. History was obtained from snf paperwork and ER notes. No other symptoms or modifying factors were reported. The patient is currently being treated for UTI with ceftriaxone and managed with IV fluids for hypotension. Over the hospital course, blood pressure improved, oxygen supplementation was required for hypoxemia, and doxycycline was initiated for suspected pneumonia based on rising WBC and chest imaging. Urine culture is pending, and discharge is planned once oxygen is weaned. Assessment: # Sepsis due to Acute complicated UTI With Enterococcus faecalis # bacteremia with Staphylococcus auricularis/hominis # Volume depletion, hypotension # Acute hypoxic respiratory failure # Community acquired pneumonia, possible Gram-positive/ negative pneumonia, r/o viral pneumonia # History of epilepsy, on valproate, [jeumutpom amd lacosamide. # History of cerebral palsy # Moderate to Severe protein energy malnutrition # Atelectasis of b/l lungs # Chronic normocytic anemia. # GERD # Mild hypokalemia, resolved. Plan: # continue PEG tube care # Continue gentle hydration, wean oxygen to keep the SpO2 over 94%. o2 as needed to maintain sat >92% # Status post 7 days of ceftriaxone and doxycycline, try incentive spirometry and aspiration precautions. # started on linezolid, close follow up of CBC, day . # Repeated blood culture 728 hours after incubation shows no growth # echo shows ejection fraction 55-60% # Looks euvolemic, continue IV hydration gentle fluids. # appropriately keep the patient on nutrition supplements, famotidine iv bid and Lovenox for DVT prophylaxis # famotidine 20mg via peg tube q12 # continue rest of the management. # continue sacral wound care DVT prophylaxis: Lovenox 30 mg subcutaneously daily Goals of care discussed with the patient for more than 27 minutes: Full code status Case discussed with Dr. Ribera, patient and nurse. Plan discussed with: Patient, Other (rn) My Orders My Orders Orders - REYMUNDO HOPKINS RESIDENT Procedure Category Date Status Time Dietary NOTICE 07/29/25 Transmitted Recommendations 18:18 Insert Midline ORDERS 07/30/25 Transmitted 13:33 * Picc Line Consult CONS 07/30/25 Transmitted 13:33 Dietary Evaluation Review Comments: Tube Feeding: Jevity 1.2 @30ml/hr To avoid refeeding syndrome, Initiate infusion @10ml/hr, increase [id number] unitl meeting the goalt rate of 30ml/hr Provide Reyes BID for promoting wound healing (via TF, or PO if medically feasible and passing DISK SANDER eval. Expected Outcomes/Goals: Improved nutrition status, prevent catabolism Visit Coding STANDARD RES Billing Provider: JAMIE RIBERA MD Date of Service if different f: Jul 30, 2025 Common Visit Codes: [id number] INP/OBS CARE(HIGH) REYMUNDO HOPKINS Jul 30, 2025 15:30 JAMIE RIBERA MD Jul 30, 2025 18:43
[2025-07-30] MEDS: FAMOTIDINE 20 MG TAB PEG SCH (22:38)
[2025-07-30] MEDS: Jevity 1.2 Cal/Fiber 1 Liter GT SCH (22:58)
[2025-07-31] VITALS (8 sets, daily range): BP systolic 105–121; BP diastolic 67–80; PULSE 55–89; RESP 16–19; TEMP 97.5–98.4; O2SAT 95–100
--- NOTE | 2025-07-31 17:42 | DVHPNRES ---
Progress Note Date Seen: Jul 31, 2025 Resident Creating Document: REYMUNDO HOPKINS RESIDENT Medical Necessity Reason Pt with a Central, PICC or Fol: No Subjective Review of Systems 07/30/25: Patient was seen and examined by me today. Patient needed overnight oxygen of 1 L to maintain saturation of 91%.Awaiting director social service for SNF placement Objective vital signs Vital Sign Date Time Temp Pulse Resp B/P (MAP) Pulse Ox O2 Delivery O2 Flow Rate FiO2 07/31/25 17:00 98.4 76 18 116/67 (83) 96 98.4 07/31/25 08:00 Nasal Cannula* 1 24 Total Intake and Output 07/30/25 07/30/25 07/31/25 15:00 23:00 07:00 Intake Total 0 ml 330 ml Balance 0 ml 330 ml medications Current Medications Medications Dose Ordered Sig/Gretchen Route Start Time Stop Time Status Last Admin Dose Admin Sodium Chloride 1,000 ml @ 60 mls/hr [id number] IV 07/21/25 16:15 07/31/25 06:06 60 MLS/HR Acetaminophen/ Hydrocodone Bitart 1 tab Q4HP PRN PO 07/21/25 16:15 07/28/25 22:50 1 TAB Ondansetron HCl 4 mg Q4HP PRN IV 07/21/25 16:15 Acetaminophen 650 mg Q6HP PRN PO 07/21/25 16:15 07/30/25 22:38 650 MG Nitroglycerin 0.4 mg Q5MINP PRN SL 07/21/25 16:15 Morphine Sulfate 2 mg Q30M PRN IV 07/21/25 16:30 Docusate Sodium 100 mg BIDP PRN GT 07/21/25 16:15 07/28/25 05:13 100 MG Levetiracetam 100 mg BID GT 07/22/25 10:00 07/31/25 09:58 100 MG Valproate Sodium 500 mg DAILY PEG 07/22/25 10:00 07/31/25 09:49 500 MG Enoxaparin Sodium 30 mg DAILY SC 07/23/25 10:00 07/31/25 10:03 30 MG Linezolid 300 ml @ 150 mls/hr Q12HR IV 07/27/25 11:00 07/31/25 09:58 150 MLS/HR Enteral Nutritional Formula 1,000 ml 45ML/HR GT 07/30/25 10:00 07/30/25 22:58 1,000 ML Famotidine 20 mg Q12HR PEG 07/30/25 22:00 07/31/25 09:49 20 MG Examination General Appearance: Nonverbal, immobile, Not in acute distress HEENT: Atraumatic, Mucous membranes moist/pink, on 1 L O2 via nasal cannula Respiratory: Clear to auscultation, Normal air movement, No added sounds Cardiovascular: Regular rate, Normal S1, Normal S2, No murmurs Abdominal: Active bowel sounds, Soft, no distention, PEG tube present Extremities: No edema, Normal pulses, No tenderness/swelling Skin: No Significant rash, except past surgical scars Neuro: Grossly Cranial nerves 3-12 NL, baseline nonverbal. difficult to check other function. laboratory and microbiology Laboratory Tests 07/30/25 04:37 Test 07/30/25 04:37 Range/Units Serum Glucose 86 74-106 mg/dL Microbiology Date/Time Source Procedure Growth Status 07/27/25 11:33 Blood Blood Culture - Preliminary NO GROWTH AFTER 72 HOURS OF INCUBATION. Resulted 07/23/25 21:20 Urine - Catheterized Urine Culture - Final Complete Labs and/or images reviewed: Labs reviewed by me, Image(s) reviewed by me Problem List/Assessment/Plan Problem List/Assessment/Plan Krystina Mcguire, 50-year-old female with a history of cerebral palsy, epilepsy, intellectual disability, G-tube dependence, and prior right shoulder dislocation, who is nonverbal and nonambulatory, was brought from a halfway to the hospital by EMS for hypotension. Initial blood pressure was 79/46 mmHg. History was obtained from halfway paperwork and ER notes. No other symptoms or modifying factors were reported. The patient is currently being treated for UTI with ceftriaxone and managed with IV fluids for hypotension. Over the hospital course, blood pressure improved, oxygen supplementation was required for hypoxemia, and doxycycline was initiated for suspected pneumonia based on rising WBC and chest imaging. Urine culture is pending, and discharge is planned once oxygen is weaned. Assessment: # Sepsis due to Acute complicated UTI With Enterococcus faecalis # bacteremia with Staphylococcus auricularis/hominis # Volume depletion, hypotension # Acute hypoxic respiratory failure # Community acquired pneumonia, possible Gram-positive/ negative pneumonia, r/o viral pneumonia # History of epilepsy, on valproate, [jeumutpom amd lacosamide. # History of cerebral palsy # Moderate to Severe protein energy malnutrition # Atelectasis of b/l lungs # Chronic normocytic anemia. # GERD # Mild hypokalemia, resolved. Plan: # continue PEG tube care # Continue gentle hydration, wean oxygen to keep the SpO2 over 94%. o2 as needed to maintain sat >92% # Status post 7 days of ceftriaxone and doxycycline, try incentive spirometry and aspiration precautions. # started on linezolid, close follow up of CBC, day . # Repeated blood culture 72 hours after incubation shows no growth # echo shows ejection fraction 55-60% # Looks euvolemic, continue IV hydration gentle fluids. # appropriately keep the patient on nutrition supplements, famotidine iv bid and Lovenox for DVT prophylaxis # famotidine 20mg via peg tube q12 # continue rest of the management. # continue sacral wound care DVT prophylaxis: Lovenox 30 mg subcutaneously daily Goals of care discussed with the patient for more than 27 minutes: Full code status Case discussed with Dr. Ribera, patient and nurse. Plan discussed with: Patient, Other (rn) Dietary Evaluation Review Comments: Tube Feeding: Jevity 1.2 @30ml/hr To avoid refeeding syndrome, Initiate infusion @10ml/hr, increase [id number] unitl meeting the goalt rate of 30ml/hr Provide Reyes BID for promoting wound healing (via TF, or PO if medically feasible and passing DIRECTOR MARKET RESEARCH eval. Expected Outcomes/Goals: Improved nutrition status, prevent catabolism Visit Coding STANDARD RES Billing Provider: JAYDEN DONIS MD Date of Service if different f: Jul 31, 2025 Common Visit Codes: [id number] INP/OBS CARE(HIGH) REYMUNDO HOPKINS RESIDENT Jul 31, 2025 17:42
[2025-08-01] VITALS (7 sets, daily range): BP systolic 108–133; BP diastolic 57–76; PULSE 71–99; RESP 16–18; TEMP 98.1–98.6; O2SAT 96–100
--- NOTE | 2025-08-01 20:00 | DVHPNRES ---
Progress Note Date Seen: Aug 01, 2025 Resident Creating Document: VALERIA PINA RESIDENT Medical Necessity Reason Pt with a Central, PICC or Fol: No Subjective Patient reports: No new complaints Objective vital signs Vital Sign Date Time Temp Pulse Resp B/P (MAP) Pulse Ox O2 Delivery O2 Flow Rate FiO2 08/01/25 17:00 98.4 99 16 133/76 (95) 98 98.4 08/01/25 08:00 Nasal Cannula* 1 24 Total Intake and Output 07/31/25 07/31/25 08/01/25 15:00 23:00 07:00 Intake Total 0 ml 380 ml Balance 0 ml 380 ml medications Current Medications Medications Dose Ordered Sig/Gretchen Route Start Time Stop Time Status Last Admin Dose Admin Sodium Chloride 1,000 ml @ 60 mls/hr [id number] IV 07/21/25 16:15 07/31/25 06:06 60 MLS/HR Acetaminophen/ Hydrocodone Bitart 1 tab Q4HP PRN PO 07/21/25 16:15 07/28/25 22:50 1 TAB Ondansetron HCl 4 mg Q4HP PRN IV 07/21/25 16:15 Acetaminophen 650 mg Q6HP PRN PO 07/21/25 16:15 07/31/25 21:02 650 MG Nitroglycerin 0.4 mg Q5MINP PRN SL 07/21/25 16:15 Morphine Sulfate 2 mg Q30M PRN IV 07/21/25 16:30 Docusate Sodium 100 mg BIDP PRN GT 07/21/25 16:15 07/28/25 05:13 100 MG Levetiracetam 100 mg BID GT 07/22/25 10:00 08/01/25 11:23 100 MG Valproate Sodium 500 mg DAILY PEG 07/22/25 10:00 08/01/25 11:24 500 MG Enoxaparin Sodium 30 mg DAILY SC 07/23/25 10:00 08/01/25 11:24 30 MG Linezolid 300 ml @ 150 mls/hr Q12HR IV 07/27/25 11:00 08/01/25 11:23 150 MLS/HR Enteral Nutritional Formula 1,000 ml 45ML/HR GT 07/30/25 10:00 07/31/25 20:57 1,000 ML Famotidine 20 mg Q12HR PEG 07/30/25 22:00 08/01/25 11:24 20 MG Examination General Appearance: Nonverbal, immobile, Not in acute distress, at baseline, looks comfortable. HEENT: Atraumatic, Mucous membranes moist/pink, on 1 L O2 via nasal cannula Respiratory: Clear to auscultation, Normal air movement, No added sounds Cardiovascular: Regular rate, Normal S1, Normal S2, No murmurs Abdominal: Active bowel sounds, Soft, no distention, PEG tube present Extremities: No edema, Normal pulses, No tenderness/swelling Skin: No Significant rash, except past surgical scars Neuro: Grossly Cranial nerves 3-12 NL, baseline nonverbal. difficult to check other function. laboratory and microbiology Laboratory Tests 07/30/25 04:37 Test 07/30/25 04:37 Range/Units Serum Glucose 86 74-106 mg/dL Microbiology Date/Time Source Procedure Growth Status 07/27/25 11:33 Blood Blood Culture - Final NO GROWTH AFTER 5 DAYS OF INCUBATION. Complete 07/23/25 21:20 Urine - Catheterized Urine Culture - Final Complete Labs and/or images reviewed: Labs reviewed by me, Image(s) reviewed by me Problem List/Assessment/Plan Problem List/Assessment/Plan Krystina Mcguire, 50-year-old female with a history of cerebral palsy, epilepsy, intellectual disability, G-tube dependence, and prior right shoulder dislocation, who is nonverbal and nonambulatory, was brought from [facility], admitted for Entercoccus fecalis acute complicated UTI, bacteremia, on IV zyvox day 01/17. Social service consulted for discharge with HH at [facility] vs SNF placement via [facility]. Assessment: # Sepsis due to Acute complicated UTI With Enterococcus faecalis # bacteremia with Staphylococcus auricularis/hominis, repeat cx -ve # Volume depletion, hypotension # Acute hypoxic respiratory failure, 1L NC # Community acquired pneumonia, possible Gram-positive/ negative pneumonia, r/o viral pneumonia Status post 7 days of ceftriaxone and doxycycline # History of epilepsy, on valproate, [jeumutpom amd lacosamide. # History of cerebral palsy # Moderate to Severe protein energy malnutrition # Atelectasis of b/l lungs # Chronic normocytic anemia. # GERD # Mild hypokalemia, resolved. # Clinically ruled out IE Plan: # continue PEG tube care, Continue gentle hydration, wean oxygen to keep the SpO2 over 94%. o2 as needed to maintain sat >92% # try incentive spirometry and aspiration precautions. # On IV linezolid, close follow up of CBC, day via midline follow platelets. # Repeated blood culture 72 hours after incubation shows no growth. # Looks euvolemic, continue IV hydration gentle fluids. # Appropriately keep the patient on nutrition supplements, famotidine iv bid and Lovenox for DVT prophylaxis # Famotidine 20mg via peg tube q12 # continue rest of the management. # continue sacral wound care preventative for decubitus ulcer. # DVT prophylaxis: Lovenox 30 mg subcutaneously daily Goals of care and care plan needed more than 27 minutes: Full code status. Pending placement, SW on board. Case discussed with Dr. Cervantes, patient and nurse. Plan discussed with: Patient Dietary Evaluation Review Comments: Tube Feeding: Jevity 1.2 @30ml/hr To avoid refeeding syndrome, Initiate infusion @10ml/hr, increase [id number] unitl meeting the goalt rate of 30ml/hr Provide Reyes BID for promoting wound healing (via TF, or PO if medically feasible and passing SHEET MANAGER eval. Expected Outcomes/Goals: Improved nutrition status, prevent catabolism Date of Service: Aug 01, 2025 Billing Provider: JAYDEN CERVANTES MD Common Visit Codes: [id number] INP/OBS CARE(HIGH) VALERIA PINA RESIDENT Aug 01, 2025 20:00 JAYDEN CERVANTES MD Aug 06, 2025 14:39
[2025-08-02] VITALS (8 sets, daily range): BP systolic 100–122; BP diastolic 51–70; PULSE 71–90; RESP 16–18; TEMP 97.6–98.6; O2SAT 97–99
--- NOTE | 2025-08-02 16:02 | DVHPNRES ---
Progress Note Date Seen: Aug 02, 2025 Resident Creating Document: REYMUNDO HOPKINS RESIDENT Medical Necessity Reason Pt with a Central, PICC or Fol: No Subjective Review of Systems Patient was seen and examined by me today. Labs in charts were reviewed. Patient is off oxygen, saturating normally. Obese increase facility ensured psychiatric social worker supervisor that they have IV service available. Paint Tester has been consulted for home health for IV Zyvox and for transport to home. Objective vital signs Vital Sign Date Time Temp Pulse Resp B/P (MAP) Pulse Ox O2 Delivery O2 Flow Rate FiO2 08/02/25 12:30 98.6 80 18 114/70 (85) 99 98.6 08/01/25 20:00 Room Air* 0 21 Total Intake and Output 08/01/25 08/01/25 08/02/25 15:00 23:00 07:00 Intake Total 300 ml 1000 ml 781.3 ml Balance 300 ml 1000 ml 781.3 ml medications Current Medications Medications Dose Ordered Sig/Gretchen Route Start Time Stop Time Status Last Admin Dose Admin Sodium Chloride 1,000 ml @ 60 mls/hr [id number] IV 07/21/25 16:15 08/02/25 05:37 60 MLS/HR Acetaminophen/ Hydrocodone Bitart 1 tab Q4HP PRN PO 07/21/25 16:15 08/02/25 06:00 1 TAB Ondansetron HCl 4 mg Q4HP PRN IV 07/21/25 16:15 Acetaminophen 650 mg Q6HP PRN PO 07/21/25 16:15 08/02/25 12:01 650 MG Nitroglycerin 0.4 mg Q5MINP PRN SL 07/21/25 16:15 Morphine Sulfate 2 mg Q30M PRN IV 07/21/25 16:30 Docusate Sodium 100 mg BIDP PRN GT 07/21/25 16:15 07/28/25 05:13 100 MG Levetiracetam 100 mg BID GT 07/22/25 10:00 08/02/25 12:02 100 MG Valproate Sodium 500 mg DAILY PEG 07/22/25 10:00 08/02/25 12:01 500 MG Enoxaparin Sodium 30 mg DAILY SC 07/23/25 10:00 08/01/25 11:24 30 MG Linezolid 300 ml @ 150 mls/hr Q12HR IV 07/27/25 11:00 08/02/25 12:01 150 MLS/HR Enteral Nutritional Formula 1,000 ml 45ML/HR GT 07/30/25 10:00 07/31/25 20:57 1,000 ML Famotidine 20 mg Q12HR PEG 07/30/25 22:00 08/02/25 12:01 20 MG Examination General Appearance: Nonverbal, immobile, Not in acute distress, at baseline, looks comfortable. HEENT: Atraumatic, Mucous membranes moist/pink, on 1 L O2 via nasal cannula Respiratory: Clear to auscultation, Normal air movement, No added sounds Cardiovascular: Regular rate, Normal S1, Normal S2, No murmurs Abdominal: Active bowel sounds, Soft, no distention, PEG tube present Extremities: No edema, Normal pulses, No tenderness/swelling Skin: No Significant rash, except past surgical scars Neuro: Grossly Cranial nerves 3-12 NL, baseline nonverbal. difficult to check other function. laboratory and microbiology Laboratory Tests 07/30/25 04:37 Test 07/30/25 04:37 Range/Units Serum Glucose 86 74-106 mg/dL Microbiology Date/Time Source Procedure Growth Status 07/27/25 11:33 Blood Blood Culture - Final NO GROWTH AFTER 5 DAYS OF INCUBATION. Complete 07/23/25 21:20 Urine - Catheterized Urine Culture - Final Complete Labs and/or images reviewed: Labs reviewed by me, Image(s) reviewed by me Problem List/Assessment/Plan Problem List/Assessment/Plan Krystina Mcguire, 50-year-old female with a history of cerebral palsy, epilepsy, intellectual disability, G-tube dependence, and prior right shoulder dislocation, who is nonverbal and nonambulatory, was brought from [facility], admitted for Entercoccus fecalis acute complicated UTI, bacteremia, on IV zyvox day 01/17. Social service consulted for discharge with HH at [facility] vs SNF placement via [facility]. Assessment: # Sepsis due to Acute complicated UTI With Enterococcus faecalis # bacteremia with Staphylococcus auricularis/hominis, repeat cx -ve # Volume depletion, hypotension # Acute hypoxic respiratory failure, 1L NC # Community acquired pneumonia, possible Gram-positive/ negative pneumonia, r/o viral pneumonia Status post 7 days of ceftriaxone and doxycycline # History of epilepsy, on valproate, [jeumutpom amd lacosamide. # History of cerebral palsy # Moderate to Severe protein energy malnutrition # Atelectasis of b/l lungs # Chronic normocytic anemia. # GERD # Mild hypokalemia, resolved. # Clinically ruled out IE Plan: # continue PEG tube care, Continue gentle hydration, wean oxygen to keep the SpO2 over 94%. o2 as needed to maintain sat >92% # try incentive spirometry and aspiration precautions. # On IV linezolid, close follow up of CBC, day 7/ via midline follow platelets. # Repeated blood culture 72 hours after incubation shows no growth. # Looks euvolemic, continue IV hydration gentle fluids. # Appropriately keep the patient on nutrition supplements, famotidine iv bid and Lovenox for DVT prophylaxis # Famotidine 20mg via peg tube q12 # continue rest of the management. # continue sacral wound care preventative for decubitus ulcer. # DVT prophylaxis: Lovenox 30 mg subcutaneously daily Goals of care and care plan needed more than 27 minutes: Full code status. Pending placement, SW on board. Case discussed with Dr. Cervantes, patient and nurse. Plan discussed with: Patient, Other (rn) My Orders My Orders Orders - REYMUNDO HOPKINS RESIDENT Procedure Category Date Status Time Discharge DISCHARGE 08/02/25 Transmitted 15:55 Dietary Evaluation Review Comments: Tube Feeding: Jevity 1.2 @30ml/hr To avoid refeeding syndrome, Initiate infusion @10ml/hr, increase [id number] unitl meeting the goalt rate of 30ml/hr Provide Reyes BID for promoting wound healing (via TF, or PO if medically feasible and passing ORIENTAL RUG REPAIRER eval. Expected Outcomes/Goals: Improved nutrition status, prevent catabolism Visit Coding STANDARD RES Billing Provider: JAYDEN CERVANTES MD Date of Service if different f: Aug 02, 2025 Common Visit Codes: [id number] INP/OBS CARE(HIGH) REYMUNDO HOPKINS RESIDENT Aug 02, 2025 16:02
[2025-08-03] VITALS (7 sets, daily range): BP systolic 101–137; BP diastolic 54–82; PULSE 75–115; RESP 16–20; TEMP 97.8–98.9; O2SAT 97–99
--- NOTE | 2025-08-03 16:50 | DVHPNRES ---
Progress Note Date Seen: Aug 03, 2025 Resident Creating Document: REYMUNDO HOPKINS RESIDENT Medical Necessity Reason Pt with a Central, PICC or Fol: No Subjective Review of Systems Patient was seen and examined by me at the bedside. No new signs. social welfare research worker sent for home health IV medication, awaiting on them. Possible DC tomorrow Objective vital signs Vital Sign Date Time Temp Pulse Resp B/P (MAP) Pulse Ox O2 Delivery O2 Flow Rate FiO2 08/03/25 13:00 98.1 101 16 133/70 (91) 98 98.1 08/03/25 08:00 Room Air* 0 21 Total Intake and Output 08/02/25 08/02/25 08/03/25 15:00 23:00 07:00 Intake Total 150 ml 300 ml Balance 150 ml 300 ml medications Current Medications Medications Dose Ordered Sig/Gretchen Route Start Time Stop Time Status Last Admin Dose Admin Sodium Chloride 1,000 ml @ 60 mls/hr [id number] IV 07/21/25 16:15 08/03/25 04:15 60 MLS/HR Acetaminophen/ Hydrocodone Bitart 1 tab Q4HP PRN PO 07/21/25 16:15 08/03/25 08:28 1 TAB Ondansetron HCl 4 mg Q4HP PRN IV 07/21/25 16:15 Acetaminophen 650 mg Q6HP PRN PO 07/21/25 16:15 08/02/25 12:01 650 MG Nitroglycerin 0.4 mg Q5MINP PRN SL 07/21/25 16:15 Morphine Sulfate 2 mg Q30M PRN IV 07/21/25 16:30 Docusate Sodium 100 mg BIDP PRN GT 07/21/25 16:15 07/28/25 05:13 100 MG Levetiracetam 100 mg BID GT 07/22/25 10:00 08/03/25 08:26 100 MG Valproate Sodium 500 mg DAILY PEG 07/22/25 10:00 08/03/25 08:27 500 MG Enoxaparin Sodium 30 mg DAILY SC 07/23/25 10:00 08/03/25 08:46 30 MG Linezolid 300 ml @ 150 mls/hr Q12HR IV 07/27/25 11:00 08/03/25 08:26 150 MLS/HR Enteral Nutritional Formula 1,000 ml 45ML/HR GT 07/30/25 10:00 08/02/25 21:03 1,000 ML Famotidine 20 mg Q12HR PEG 07/30/25 22:00 08/03/25 08:26 20 MG Examination General Appearance: Nonverbal, immobile, Not in acute distress HEENT: Atraumatic, Mucous membranes moist/pink, on 1 L O2 via nasal cannula Respiratory: Clear to auscultation, Normal air movement, No added sounds Cardiovascular: Regular rate, Normal S1, Normal S2, No murmurs Abdominal: Active bowel sounds, Soft, no distention, PEG tube present Extremities: No edema, Normal pulses, No tenderness/swelling Skin: No Significant rash, except past surgical scars Neuro: Grossly Cranial nerves 3-12 NL, baseline nonverbal. difficult to check other function. laboratory and microbiology Laboratory Tests 07/30/25 04:37 Test 07/30/25 04:37 Range/Units Serum Glucose 86 74-106 mg/dL Microbiology Date/Time Source Procedure Growth Status 07/27/25 11:33 Blood Blood Culture - Final NO GROWTH AFTER 5 DAYS OF INCUBATION. Complete 07/23/25 21:20 Urine - Catheterized Urine Culture - Final Complete Labs and/or images reviewed: Labs reviewed by me, Image(s) reviewed by me Problem List/Assessment/Plan Problem List/Assessment/Plan Krystina Mcguire, 50-year-old female with a history of cerebral palsy, epilepsy, intellectual disability, G-tube dependence, and prior right shoulder dislocation, who is nonverbal and nonambulatory, was brought from a assisted to the hospital by EMS for hypotension. Initial blood pressure was 79/46 mmHg. History was obtained from assisted paperwork and ER notes. No other symptoms or modifying factors were reported. The patient is currently being treated for UTI with ceftriaxone and managed with IV fluids for hypotension. Over the hospital course, blood pressure improved, oxygen supplementation was required for hypoxemia, and doxycycline was initiated for suspected pneumonia based on rising WBC and chest imaging. Urine culture is pending, and discharge is planned once oxygen is weaned. Assessment: # Sepsis due to Acute complicated UTI With Enterococcus faecalis # bacteremia with Staphylococcus auricularis/hominis # Volume depletion, hypotension # Acute hypoxic respiratory failure # Community acquired pneumonia, possible Gram-positive/ negative pneumonia, r/o viral pneumonia # History of epilepsy, on valproate, [jeumutpom amd lacosamide. # History of cerebral palsy # Moderate to Severe protein energy malnutrition # Atelectasis of b/l lungs # Chronic normocytic anemia. # GERD # Mild hypokalemia, resolved. Plan: # continue PEG tube care # Continue gentle hydration, wean oxygen to keep the SpO2 over 94%. o2 as needed to maintain sat >92% # Status post 7 days of ceftriaxone and doxycycline, aspiration precautions. # started on linezolid, close follow up of CBC, day . # Repeated blood culture 72 hours after incubation shows no growth # echo shows ejection fraction 55-60% # Looks euvolemic, continue IV hydration gentle fluids. # appropriately keep the patient on nutrition supplements, famotidine iv bid and Lovenox for DVT prophylaxis # famotidine 20mg via peg tube q12 # continue rest of the management. # continue sacral wound care DVT prophylaxis: Lovenox 30 mg subcutaneously daily Goals of care discussed with the patient for more than 27 minutes: Full code status Case discussed with Dr. Cervantes, patient and nurse. Plan discussed with: Patient, Other (rn) Dietary Evaluation Review Comments: Tube Feeding: Jevity 1.2 @30ml/hr To avoid refeeding syndrome, Initiate infusion @10ml/hr, increase [id number] unitl meeting the goalt rate of 30ml/hr Provide Reyes BID for promoting wound healing (via TF, or PO if medically feasible and passing IT LEAD eval. Expected Outcomes/Goals: Improved nutrition status, prevent catabolism Visit Coding STANDARD RES Billing Provider: JAYDEN CERVANTES MD Date of Service if different f: Aug 03, 2025 Common Visit Codes: 91588-[id number] INP/OBS CARE(HIGH) REYMUNDO HOPKINS RESIDENT Aug 03, 2025 16:50
[2025-08-04 01:00] VITALS: BP 98/56; PULSE 80; RESP 17; TEMP 97; O2SAT 99
[2025-08-04 05:00] VITALS: BP 97/52; PULSE 83; RESP 18; TEMP 97; O2SAT 99
[2025-08-04 08:00] VITALS: PULSE 64; PULSE 79; RESP 14; O2SAT 96
[2025-08-04 09:00] VITALS: BP 109/65; PULSE 76; RESP 17; TEMP 96.9; O2SAT 99
[2025-08-04 13:00] VITALS: BP 102/55; PULSE 70; RESP 15; TEMP 97.1; O2SAT 99
--- NOTE | 2025-08-04 15:17 | DVHDSRES ---
Discharge Summary Date of Admission Resident Creating Document: REYMUNDO HOPKINS RESIDENT Jul 21, 2025 at 16:07 Date of Discharge: Aug 03, 2025 Admitting Diagnosis Hypotension Labs/Diagnostic Data: Laboratory Results Test 07/30/25 04:37 07/27/25 11:27 07/23/25 21:26 07/23/25 21:20 White Blood Count 5.4 10^3/uL (4.4-10.8) Red Blood Count 3.67 10^6/uL (4.0-5.20) Hemoglobin 11.0 g/dL (12.2-16.2) Hematocrit 33.3 % (36.0-46.0) Mean Corpuscular Volume 90.8 fL (80.0-100.0) Mean Corpuscular Hemoglobin 29.9 pg (28.0-32.0) Mean Corpuscular Hemoglobin Concent 32.9 g/dL (32.0-36.0) Red Cell Distribution Width 14.1 % (11.8-14.3) Platelet Count 238 10^3/uL (140-450) Mean Platelet Volume 7.3 fL (6.9-10.8) Neutrophils (%) (Auto) 44.3 % (37.0-80.0) Lymphocytes (%) (Auto) 38.9 % (10.0-50.0) Monocytes (%) (Auto) 13.1 % (0.0-12.0) Eosinophils (%) (Auto) 2.7 % (0.0-7.0) Basophils (%) (Auto) 1.0 % (0.0-2.0) Neutrophils # (Auto) 2.4 10 ^3/uL (1.6-8.6) Lymphocytes # (Auto) 2.1 10 ^3/uL (0.4-5.4) Monocytes # (Auto) 0.7 10 ^3/uL (0-1.3) Eosinophils # (Auto) 0.1 10 ^3/uL (0-0.8) Basophils # (Auto) 0.1 10 ^3/uL (0-0.2) Nucleated Red Blood Cells 0.2 % Sodium Level 139 mmol/L (136-145) Potassium Level 4.2 mmol/L (3.5-5.1) Chloride Level 105 mmol/L (98-107) Carbon Dioxide Level 26 mmol/L (20-31) Anion Gap 8 (5-15) Blood Urea Nitrogen 6 mg/dL (9-23) Creatinine 0.34 mg/dL (0.550-1.02) Glomerular Filtration Rate Calc 125 mL/min (>90) BUN/Creatinine Ratio 17.6 (10.0-20.0) Serum Glucose 86 mg/dL (74-106) Calcium Level 9.5 mg/dL (8.7-10.4) Valproic Acid Level < 3.0 ug/mL (50-100) Influenza Type A Antigen Negative (Negative) Influenza Type B Antigen Negative (Negative) SARS-CoV-2 Antigen (Rapid) Negative (NEGATIVE) Urine Color Colorless (Yellow) Urine Clarity Clear (Clear) Urine pH 7.0 (5.0-9.0) Urine Specific Marshall 1.005 (1.001-1.035) Urine Protein Negative (Negative) Urine Ketones Negative (Negative) Urine Blood Negative /uL (Negative) Urine Nitrite Negative (Negative) Urine Bilirubin Negative (Negative) Urine Urobilinogen Normal mg/dL (Negative) Urine Leukocyte Esterase Negative /uL (Negative) Urine RBC None seen /hpf (0 - 4) Urine Microscopic WBC 1 /HPF (0-5) Urine Squamous Epithelial Cells Few /hpf (<5) Urine Bacteria None seen /hpf (None Seen) Urine Glucose Normal mg/dL (Normal) Test 07/22/25 06:03 07/21/25 16:33 07/21/25 12:03 Magnesium Level 1.9 mg/dL (1.6-2.6) Total Bilirubin 0.4 mg/dL (0.2-1.0) Aspartate Amino Transferase (AST) 16 U/L (13-40) Alanine Aminotransferase (ALT) 15 U/L (7-40) Alkaline Phosphatase 145 U/L (46-116) B-Type Natriuretic Peptide 140.00 pg/mL (0-100) Total Protein 4.9 g/dL (5.7-8.2) Albumin 2.8 g/dL (3.2-4.8) Thyroid Stimulating Hormone (TSH) 2.17 uIU/mL (0.55-4.78) Urine WBC Clumps Present /hpf (None Seen) Urine Mucus Few (None Seen) Urine Opiates Screen Neg (NEGATIVE) Urine Fentanyl Screen Neg (NEGATIVE) Urine Barbiturates Screen Neg (NEGATIVE) Urine Phencyclidine Screen Neg (NEGATIVE) Urine Amphetamines Screen Neg (NEGATIVE) Urine Benzodiazepines Screen Neg (NEGATIVE) Urine Cocaine Screen Neg (NEGATIVE) Urine Cannabinoids Screen Neg (NEGATIVE) Prothrombin Time 11.5 sec (9.3-11.8) Prothrombin Time INR 1.09 (0.9-1.15) Activated Partial Thromboplast Time 33.5 SEC (24.5-34.5) Lactic Acid Level 1.7 mmol/L (0.4-2.0) Other Laboratory Tests 07/30/25 04:37 Brief Hx & Hospital Course: Brief history of hospitalization: Krystina Mcguire, a 50-year-old female with a history of cerebral palsy, epilepsy, intellectual disability, G-tube dependence, and prior right shoulder dislocation, who is nonverbal and nonambulatory, was admitted from a [facility] for hypotension (initial BP 79/46 mmHg). She was found to have sepsis secondary to an acute complicated UTI with Enterococcus faecalis and bacteremia with Staphylococcus auricularis/hominis. Hospital course was notable for volume depletion, acute hypoxic respiratory failure, and suspected community-acquired pneumonia, managed with IV fluids, oxygen supplementation, and antibiotics. The patient completed 7 days of ceftriaxone and doxycycline and was transitioned to linezolid (currently day 8 of 14) for bacteremia. Repeat blood cultures showed no growth, and echocardiogram revealed normal ejection fraction (5560%). Additional issues included moderate to severe protein-energy malnutrition, chronic normocytic anemia, GERD, bilateral atelectasis, and resolved mild hypokalemia. Nutritional support via PEG tube, famotidine, DVT prophylaxis, and sacral wound care were continued. The patient is clinically stable, euvolemic, and Requires oxygen of 1 L on and off. Patient will require 5 more days of IV linezolid through a midline which has been placed in the hospital and [facility] has been informed regarding this. patient is stable and being discharged back to [facility]. General Appearance: Nonverbal, immobile, Not in acute distress HEENT: Atraumatic, Mucous membranes moist/pink, on 1 L O2 via nasal cannula Respiratory: Clear to auscultation, Normal air movement, No added sounds Cardiovascular: Regular rate, Normal S1, Normal S2, No murmurs Abdominal: Active bowel sounds, Soft, no distention, PEG tube present Extremities: No edema, Normal pulses, No tenderness/swelling Skin: No Significant rash, except past surgical scars Neuro: Grossly Cranial nerves 3-12 NL, baseline nonverbal. difficult to check other function. Operations or Procedures PROCEDURE(s): CXRP - CHEST PORTABLE REASON: hypotension INDICATION: hypotension IMPRESSION: Mild increased interstitial markings involving the right lung. EXAM: XY PELVIS AP ClINICAL INDICATION: pain FINDINGS/IMPRESSION: There is no evidence of acute fracture or dislocation. The visualized joint space is well maintained. The alignment is anatomical. There is no radiopaque foreign body. CHEST RADIOGRAPH INDICATION: sob IMPRESSION: No acute cardiopulmonary disease. Condition at Discharge: Stable Final Diagnosis/Problems List # Sepsis due to Acute complicated UTI With Enterococcus faecalis # bacteremia with Staphylococcus auricularis/hominis # Volume depletion, hypotension # Acute hypoxic respiratory failure # Community acquired pneumonia, possible Gram-positive/ negative pneumonia, r/o viral pneumonia # History of epilepsy, on valproate, [jeumutpom amd lacosamide. # History of cerebral palsy # Moderate to Severe protein energy malnutrition # Atelectasis of b/l lungs # Chronic normocytic anemia. # GERD # Mild hypokalemia, resolved. Discharge Disposition: Home Discharge Instruct/Medications Diet: Regular Activity: See Comment Activity comment: patients position needs to be changed so she doesnt develop pressure sores Follow Up/Referral: followup with pcp in 2 weeks Medications: as per emr Scheduled Levetiracetam (Levetiracetam), 100 MG GT BID, (Reported) Miscellaneous Medications Famotidine (Pepcid Injection), 20 MG IV, (Reported) Famotidine (Pepcid AC), 20 MG PO, (Reported) Hydrocodone-Acetaminophen (Hydrocodone Bitartrate/AC 10-325 mg), 1 TAB PO, (Reported) Lacosamide (Vimpat), 10 MG PO, (Reported) Lorazepam (Ativan Inj), 2 MG IM, (Reported) Phenytoin (Phenytoin Infatabs), 50 MG OR, (Reported) Valproate Sodium (Valproic Acid), 500 MG PO, (Reported) Discharge Statement: "Patient was advised to return to the ER or call 911 if any headaches, dizziness, shortness of breath, chest pain, abdominal pain, bleeding, fevers, or worsening of medical condition. Patient was counseled about treatment plan, medications, possible side effects, patientverbalized understanding. All questions were answered to the best of my ability. This discharge took greater then 30 minutes in planning, reviewing documentation, counseling the patient, and discussing with other team members." ASSESSMENT ASSESSMENT Assessment # Sepsis due to Acute complicated UTI With Enterococcus faecalis # bacteremia with Staphylococcus auricularis/hominis, repeat cx -ve # Volume depletion, hypotension # Acute hypoxic respiratory failure, 1L NC # Community acquired pneumonia, possible Gram-positive/ negative pneumonia, r/o viral pneumonia Status post 7 days of ceftriaxone and doxycycline Visit Coding STANDARD RES Billing Provider: JAYDEN DONIS MD Date of Service if different f: Aug 04, 2025 Common Visit Codes: 85672-NCW/OBS DISCH DAY >30min REYMUNDO HOPKINS RESIDENT Aug 04, 2025 15:17
[2025-08-04 17:00] VITALS: BP 106/60; PULSE 74; RESP 16; TEMP 97; O2SAT 98
== END 2025-08-04 19:30 | disposition home health service (06) | DRG 720 ==
LOC: ER 11:34 → EDBD 11:34 → OVERFLOW 16:07 → TELE-WESTW 17:46
PROVIDERS: ADMIT Internal Medicine Geriatric Medicine; ATTEND Internal Medicine Geriatric Medicine
PROC: 05HA33Z Insertion of Infusion Device into Left Brachial Vein, Percutaneous Approach (ICD-10-PCS; principal; 2025-07-31)
PROC: B54NZZA Ultrasonography of Left Upper Extremity Veins, Guidance (ICD-10-PCS; 2025-07-31)
DX: A41.81 Sepsis due to Enterococcus (principal); E43 Unspecified severe protein-calorie malnutrition; J15.69 Pneumonia due to other Gram-negative bacteria; J96.01 Acute respiratory failure with hypoxia; J15.9 Unspecified bacterial pneumonia; J12.9 Viral pneumonia, unspecified; N39.0 Urinary tract infection, site not specified; G40.909 Epilepsy, unspecified, not intractable, without status epilepticus; D64.9 Anemia, unspecified; G80.8 Other cerebral palsy; Z20.822 Contact with and (suspected) exposure to COVID-19; E86.9 Volume depletion, unspecified; J98.11 Atelectasis; K21.9 Gastro-esophageal reflux disease without esophagitis; E87.6 Hypokalemia; F79 Unspecified intellectual disabilities; Z74.01 Bed confinement status; Z68.1 Body mass index [BMI] 19.9 or less, adult
CPT/HCPCS: 36415; 71045; 72170; 80048; 80053; 80164; 80307; 81001; 83605; 83735; 83880; 84443; 85025; 85610; 85730; 87040; 87077; 87086; 87088; 87186; 87426; 87804; 93005; 93306; 96365; G0378; J3480; J3490